=== PATIENT | male | born 1955 | race Caucasian/White ===

== ENCOUNTER → 2018-12-15 | Outpatient (CLI) | payer OTHER, SELFPAY ==
[2018-12-15 18:24] VITALS: BMI 26.9
[2018-12-16 01:07] LABS: Absolute Lymphocyte Count 2.53 X10^3/ul (0.83-4.51); Absolute Neutrophil Count 4.4 X10^3/uL (2.0-7.7); Basophil# 0.04 X10^3/uL; Basophil% 0.5 % (0-1); Eosinophil# 0.17 X10^3/uL; Hematocrit 44.6 % (40-54); Hemoglobin 15.3 g/dl (13.0-16.5); Lymphocyte # 2.53 X10^3/ul (4.0); Lymphocyte % 30.1 % (19-41); Mean Corp Hgb Conc 34.3 g/gl (32-36); Mean Corpuscular Volume 96.1 fL (80-94); Monocyte# 1.28 X10^3/uL; Monocyte% 15.2 % (0-10); Neutrophil # 4.38 X10^3/uL (2.7-7.7); Neutrophil % 52.1 % (47-70); Platelet Count 265 K/mm3 (150-450); RBC Distribution Width CV 13.7 % (11.6-14.6); RBC Distribution Width SD 48.3 fl (35.1-43.9); Red Blood Count 4.64 M/mm3 (4.6-6.2); White Blood Count 8.4 K/mm3 (4.4-11.0)
[2018-12-16 01:12] LABS: Erythrocyte Sedimentation Rate 2 mm/hr (0-20); POSITIVE COUNT NO; POSITIVE DIFFERENTIAL NO; POSITIVE MORPHOLOGY NO
[2018-12-16 03:07] LABS: ALB/GLOB Ratio 1.1 RATIO (0.9-2.4); AST(SGOT) 23 U/L (15-37); Alanine Aminotransfer ALT/SGPT 32 U/L (16-61); Albumin, Serum 3.7 g/dL (3.2-5.0); Alkaline Phosphatase 74 U/L (45-117); Anion Gap 5 (5-15); BUN 20 mg/dL (7-18); BUN/Creat Ratio 19.2 RATIO (10-20); Calcium,Total 8.7 mg/dL (8.5-10.1); Chloride 104 mmol/L (98-107); Creatinine, Serum 1.04 mg/dL (0.70-1.30); EST Glomerular Filtration Rate 77 mL/min (>60); Est Glom Filt Rate - Afr Amer 93 mL/min (>60); Globulin 3.3 g/dL (2.2-4.2); Glucose 78 mg/dL (74-106); Potassium 4.2 mmol/L (3.5-5.1); Rheumatoid Factor < 10.0 IU/mL (<15); Sodium Level 138 mmol/L (136-145)
[2018-12-17 15:07] LABS: ANTINUCLEAR ANTIBODIES DIRECT Negative (Negative)
== END | disposition home or self-care (01) ==
PROVIDERS: Family Provider Nurse Practitioner; PCP Nurse Practitioner; Referring Provider Nurse Practitioner; Visit Provider Nurse Practitioner
DX: M79.89 Other specified soft tissue disorders (principal); R20.0 Anesthesia of skin
CPT/HCPCS: 80053; 85025; 85652; 86038; 86225; 86235; 86431

== ENCOUNTER → 2019-05-11 01:09 | Outpatient (CLI) | payer OTHER, SELFPAY ==
[2019-05-10 15:13] VITALS: BMI 28.4
[2019-05-11 01:26] LABS: Absolute Lymphocyte Count 2.18 X10^3/uL (0.83-4.51); Absolute Neutrophil Count 4.5 X10^3/uL (2.0-7.7); Basophil% 1.2 % (0-1); Eosinophil# 0.38 X10^3/uL; Eosinophils% 4.5 % (0-5); Hematocrit 46.4 % (40-54); Hemoglobin 15.7 g/dL (13.0-16.5); Lymphocyte # 2.18 X10^3/ul (4.0); Lymphocyte % 25.9 % (19-41); Mean Corp Hgb Conc 33.8 g/dL (32-36); Mean Corpuscular Hgb 32.8 pg (27.0-32.0); Mean Corpuscular Volume 96.9 fL (80-94); Mean Platelet Vol. 12.1 fl (6.2-12.0); Monocyte# 1.28 X10^3/uL; Monocyte% 15.2 % (0-10); NRBC Flagged by Analyzer 0 % (0-5); Neutrophil # 4.47 X10^3/uL (2.7-7.7); Platelet Count 236 K/mm3 (150-450); RBC Distribution Width CV 12.9 % (11.6-14.6); RBC Distribution Width SD 46.4 fl (35.1-43.9); Red Blood Count 4.79 M/mm3 (4.6-6.2); White Blood Count 8.4 K/mm3 (4.4-11.0)
[2019-05-11 01:39] LABS: ALB/GLOB Ratio 1.1 RATIO (0.9-2.4); AST(SGOT) 26 U/L (15-37); Alanine Aminotransfer ALT/SGPT 35 U/L (16-61); Albumin, Serum 3.6 g/dL (3.2-5.0); Alkaline Phosphatase 74 U/L (45-117); Anion Gap 6 (5-15); BUN 14 mg/dL (7-18); BUN/Creat Ratio 12.5 RATIO (10-20); Calcium,Total 8.6 mg/dL (8.5-10.1); Chloride 105 mmol/L (98-107); Cholesterol 182 mg/dL (200); Creatinine, Serum 1.12 mg/dL (0.70-1.30); EST Glomerular Filtration Rate 71 mL/min (>60); Est Glom Filt Rate - Afr Amer 85 mL/min (>60); Globulin 3.3 g/dL (2.2-4.2); Glucose 154 mg/dL (74-106); High Density Lipoprotein 59 mg/dL; Potassium 3.9 mmol/L (3.5-5.1); Protein, Total 6.9 g/dL (6.4-8.2); Sodium Level 136 mmol/L (136-145); Triglycerides 170 mg/dL; Very Low Density Lipoprotein 34 mg/dL (5-40)
[2019-05-11 11:20] LABS: PSA,Total- Diagnostic 3.24 ng/mL (0.0-4.0)
== END ==
PROVIDERS: Family Provider Nurse Practitioner; PCP Nurse Practitioner; Referring Provider Nurse Practitioner; Visit Provider Nurse Practitioner
DX: Z00.00 Encounter for general adult medical examination without abnormal findings (principal); R97.20 Elevated prostate specific antigen [PSA]
CPT/HCPCS: 80053; 80061; 84153; 85025

== ENCOUNTER → 2020-01-11 20:58 | Outpatient (CLI) | payer OTHER, SELFPAY ==
[2020-01-11 14:53] VITALS: BMI 27.1
[2020-01-14 01:08] LABS: PSA, Free 0.41 ng/mL; PSA, Free % 10.5 % (.); PSA, Total Ultrasensitive 3.9 ng/mL (0.0-4.0)
== END ==
PROVIDERS: Visit Provider Nurse Practitioner
DX: R97.20 Elevated prostate specific antigen [PSA] (principal)
CPT/HCPCS: 84153; 84154

== ENCOUNTER → 2020-07-31 22:24 | Outpatient (CLI) | payer OTHER, SELFPAY ==
[2020-07-31 16:35] VITALS: BMI 27.8
[2020-07-31 22:43] LABS: Absolute Lymphocyte Count 2.24 X10^3/uL (0.83-4.51); Absolute Neutrophil Count 3.5 X10^3/uL (2.0-7.7); Basophil# 0.08 X10^3/uL; Basophil% 1.1 % (0-1); Eosinophil# 0.21 X10^3/uL; Hematocrit 44.4 % (40-54); Hemoglobin 14.7 g/dL (13.0-16.5); Lymphocyte # 2.24 X10^3/ul (4.0); Lymphocyte % 31.8 % (19-41); Mean Corp Hgb Conc 33.1 g/dL (32-36); Mean Corpuscular Hgb 32.1 pg (27.0-32.0); Mean Corpuscular Volume 96.9 fL (80-94); Mean Platelet Vol. 11.4 fl (6.2-12.0); Monocyte# 1.03 X10^3/uL; Monocyte% 14.6 % (0-10); NRBC Flagged by Analyzer 0 % (0-5); Neutrophil # 3.48 X10^3/uL (2.7-7.7); Neutrophil % 49.4 % (47-70); Platelet Count 265 K/mm3 (150-450); RBC Distribution Width SD 46.3 fl (35.1-43.9); Red Blood Count 4.58 M/mm3 (4.6-6.2); White Blood Count 7.1 K/mm3 (4.4-11.0)
[2020-07-31 23:04] LABS: ALB/GLOB Ratio 1.1 RATIO (0.9-2.4); AST(SGOT) 25 U/L (15-37); Alanine Aminotransfer ALT/SGPT 34 U/L (16-61); Albumin, Serum 3.6 g/dL (3.2-5.0); Alkaline Phosphatase 60 U/L (45-117); Anion Gap 5 (5-15); BUN 17 mg/dL (7-18); BUN/Creat Ratio 14.8 RATIO (10-20); Calcium,Total 8.7 mg/dL (8.5-10.1); Chloride 102 mmol/L (98-107); Cholesterol 186 mg/dL (200); Creatinine, Serum 1.15 mg/dL (0.70-1.30); EST Glomerular Filtration Rate 68 mL/min (>60); Est Glom Filt Rate - Afr Amer 83 mL/min (>60); Globulin 3.2 g/dL (2.2-4.2); Glucose 84 mg/dL (74-106); High Density Lipoprotein 63 mg/dL; PSA,Total - Annual Screen 3.29 ng/mL (0.00-4.00); Potassium 4.9 mmol/L (3.5-5.1); Protein, Total 6.8 g/dL (6.4-8.2); Sodium Level 136 mmol/L (136-145); Triglycerides 113 mg/dL; Very Low Density Lipoprotein 23 mg/dL (5-40)
== END ==
PROVIDERS: PCP Nurse Practitioner; Referring Provider Nurse Practitioner; Visit Provider Nurse Practitioner
DX: Z00.00 Encounter for general adult medical examination without abnormal findings (principal)
CPT/HCPCS: 80053; 80061; 84153; 85025; G0103

== ENCOUNTER → 2021-10-24 | Outpatient (CLI) | payer BC, SELFPAY ==
[2021-10-24 22:18] LABS: ALB/GLOB Ratio 1.1 RATIO (0.9-2.4); AST(SGOT) 26 U/L (15-37); Absolute Neutrophil Count 4.7 X10^3/uL (2.0-7.7); Alanine Aminotransfer ALT/SGPT 39 U/L (16-61); Albumin, Serum 3.5 g/dL (3.2-5.0); Alkaline Phosphatase 64 U/L (45-117); Anion Gap 6 (5-15); BUN 21 mg/dL (7-18); BUN/Creat Ratio 21.5 RATIO (10-20); Basophil% 1.1 % (0-1); Calcium,Total 8.3 mg/dL (8.5-10.1); Chloride 107 mmol/L (98-107); Cholesterol 186 mg/dL (200); Creatinine, Serum 0.98 mg/dL (0.70-1.30); EST Glomerular Filtration Rate 82 mL/min (>60); Eosinophil# 0.43 X10^3/uL; Eosinophils% 4.7 % (0-5); Est Glom Filt Rate - Afr Amer 99 mL/min (>60); Globulin 3.3 g/dL (2.2-4.2); Glucose 92 mg/dL (74-106); Hematocrit 43.2 % (40-54); Hemoglobin 14.7 g/dL (13.0-16.5); High Density Lipoprotein 64 mg/dL; Lymphocyte % 28.4 % (19-41); Mean Corpuscular Hgb 32.3 pg (27.0-32.0); Mean Corpuscular Volume 94.9 fL (80-94); Mean Platelet Vol. 11.5 fl (6.2-12.0); Monocyte# 1.35 X10^3/uL; Monocyte% 14.8 % (0-10); NRBC Flagged by Analyzer 0 % (0-5); Neutrophil # 4.66 X10^3/uL (2.7-7.7); Neutrophil % 50.9 % (47-70); PSA,Total - Annual Screen 4.56 ng/mL (0.00-4.00); Platelet Count 272 K/mm3 (150-450); Protein, Total 6.8 g/dL (6.4-8.2); RBC Distribution Width CV 13.2 % (11.6-14.6); Red Blood Count 4.55 M/mm3 (4.6-6.2); Sodium Level 138 mmol/L (136-145); Triglycerides 131 mg/dL; Very Low Density Lipoprotein 26 mg/dL (5-40); White Blood Count 9.2 K/mm3 (4.4-11.0)
== END | disposition home or self-care (01) ==
PROVIDERS: PCP Nurse Practitioner; Referring Provider Nurse Practitioner; Visit Provider Nurse Practitioner
DX: Z00.00 Encounter for general adult medical examination without abnormal findings (principal)
CPT/HCPCS: 80053; 80061; 84153; 85025; G0103

== ENCOUNTER → 2021-12-19 | Outpatient (CLI) | payer BC, SELFPAY ==
[2021-12-19 21:42] LABS: PSA,Total- Diagnostic 4.76 ng/mL (0.0-4.0)
[2021-12-21 13:20] LABS: PSA, Free 0.63 ng/mL; PSA, Free % 15.4 % (.); PSA, Total Ultrasensitive 4.1 ng/mL (0.0-4.0)
== END | disposition home or self-care (01) ==
PROVIDERS: PCP Nurse Practitioner; Referring Provider Nurse Practitioner; Visit Provider Nurse Practitioner
DX: R97.20 Elevated prostate specific antigen [PSA] (principal)
CPT/HCPCS: 84153; 84154

== ENCOUNTER → 2022-03-05 | Outpatient (CLI) | payer MEDICARE, SELFPAY ==
--- NOTE | 2022-03-05 | IMM_PTH ---
PATIENT: PHIL REMY LOC: [facility] U#:[id number] AGE/SX: 67/M ROOM: RE03/05/[address]: Dr. Brandyn Schroeder MD : 1955 BED: DIS: 03/05/2022 SPEC #: [id number] RECD: 03/08/22 07:41 STATUS: MARTHA REQ #: [id number] ASHLEY: 03/05/22 00:[address]: Brandyn Schroeder DEPT: IMMUNOHISTOCHEMISTRY RECD BY: Bernadette Wilkinson ENTERED: 03/08/22 07:42 SP TYPE: IMMUNO OTHR DR: Lorie Woodruff, RUBBER MOLD MAKER-C Tissues: B - PROSTATE RIGHT F - PROSTATE LEFT Procedures: 34BE12 (add) P40 (add) 34BE12 (initial) PHYSICIAN & INSTITUTION [place] [id number] SPECIMEN INFORMATION: Tissue Source: B - Right prostate, mid, core biopsy, F - Left prostate, base, core biopsy Clinical Info: Elevated PSA Specimen Number: [id number] B & F CPT code: 40844, 00167 x3 METHODOLOGY: Deparaffinized sections of prefer/formalin-fixed tissue or PAP/DQ stained slides are incubated with monoclonal/polyclonal antibodies/oligonucleotide probes. Localization is made via biotin free immunoperoxidase method. Appropriate controls are performed and reacted as expected. Results on target cell population are indicated in the following table: RESULTS: ANTIBODY / CLONE RESULT Block B P40 (BC28) negative 34BE12 (34BE12) negative Block F P40 (BC28) negative 34BE12 (34BE12) negative These tests were developed and their performance characteristics determined by [facility]. They may not have been cleared or approved by the U.S. Food and Drug Administration. The FDA has determined that such clearance or approval is not necessary. The above immunohistochemical/dualISH markers are ordered and reviewed by the Pathologist. INTERPRETATION: B. Right prostate, mid, core biopsy: Adenocarcinoma. F. Left prostate, base, core biopsy: Focal atypical small acinar proliferation (ELLYN). JUDY:efra 03/08/2022
--- NOTE | 2022-03-05 08:00 | PROSBIL_PTH ---
PATIENT: PHIL REMY [facility] U#:[id number] AGE/SX: 67/M ROOM: RE03/05/[address]: Dr. Brandyn Schroeder MD : 1955 BED: DIS: 03/05/2022 SPEC #: [id number] RECD: 03/05/22 16:48 STATUS: MARTHA SABINO #: [id number] ASHLEY: 03/05/22 08:[address]: Brandyn Schroeder DEPT: SURGICAL PATHOLOGY RECD BY: Alicia Elliott ENTERED: 03/06/22 08:25 SP TYPE: PROST BX REAGAN DR: Lorie Woodruff, CHARGE LPN-C Tissues: A - PROSTATE RIGHT B - PROSTATE RIGHT C - PROSTATE RIGHT D - PROSTATE LEFT E - PROSTATE LEFT F - PROSTATE LEFT Procedures: PROSTATE BX HEADER OPERATION: Prostate biopsy PRE-OP DIAGNOSIS: Elevated PSA R97.20 TISSUE SUBMITTED: A - Right apex, B - Right mid, C - Right base, D - Left apex, E - Left mid, F - Left base MICROSCOPIC DIAGNOSIS A. Right prostate, apex, core biopsy: Prostatic tissue, negative for malignancy. B. Right prostate, mid, core biopsy: Prostatic adenocarcinoma. [place] grade: 3+3=6 Number of cores involved: 1/2 Proportion of tissue involved: ~5% Perineural invasion: Not identified. Greatest tumor length: 0.1 cm See comment. C. Right prostate, base, core biopsy: Prostatic tissue, negative for malignancy. D. Left prostate, apex, core biopsy: Prostatic tissue, negative for malignancy. E. Left prostate, mid, core biopsy: Focal high-grade prostatic intraepithelial neoplasia (HGPIN). Focal mild chronic inflammation. F. Left prostate, base, core biopsy: Focal atypical small acinar proliferation (ELLYN). See comment. SJ:rg 03/07/2022 COMMENT B & F. Immunohistochemistry ([id number]) supports the above diagnosis. Case has been reviewed in consultation with Dr. Flores who concurs with the above diagnosis. IDC:AM MICROSCOPIC DESCRIPTION Slides are reviewed. GROSS DESCRIPTION A - Received is one container designated prostate, right apex. The specimen consists of one elongated fragment of light sparks-white soft tissue measuring 1 cm in length and 0.1 cm in diameter. The specimen is totally submitted in one cassette. B - Received is one container designated prostate, right mid. The specimen consists of two elongated fragments of light sparks-white soft tissue measuring 0.7 and 1.2 cm in length and 0.1 cm in diameter. The specimen is totally submitted in one cassette. C - Received is one container designated prostate, right base. The specimen consists of two elongated fragments of light sparks-white soft tissue each measuring 1.4 cm in length and 0.1 cm in diameter. The specimen is totally submitted in one cassette. D - Received is one container designated prostate, left apex. The specimen consists of one elongated fragment of light sparks-white soft tissue measuring 0.7 cm in length and 0.1 cm in diameter. The specimen is totally submitted in one cassette. E - Received is one container designated prostate, left mid. The specimen consists of two elongated fragments of light sparks-white soft tissue each measuring 0.8 cm in length and 0.1 cm in diameter. The specimen is totally submitted in one cassette. F - Received is one container designated prostate, left base. The specimen consists of two elongated fragments of light sparks-white soft tissue each measuring 1 cm in length and 0.1 cm in diameter. The specimen is totally submitted in one cassette. / SJ:rg 03/06/2022 TC:0 CPT: G0146 ADDENDUM ADDENDUM ADDENDUM ADDENDUM ADDENDUM ADDENDUM ADDENDUM ADDENDUM 04/10/2022 10:32 ADDENDUM 04/10/2022 10:32 ADDENDUM 04/10/2022 10:32 ADDENDUM 04/10/2022 10:32 ADDENDUM 04/10/2022 10:32 An order for Oncotype testing was received from Dr. Schroeder. This necessitated case review, block and slide selection by pathologist at [facility]. Genomic Prostate Score = 44 Results of the complete Oncotype testing ([employer] report) are viewable in EMR under: Reports - Pathology - Lab Pathology Report, Scanned.
== END | disposition home or self-care (01) ==
LOC: LABSPEC 16:51
PROVIDERS: PCP Nurse Practitioner; Referring Provider Urology; Visit Provider Urology
DX: C61 Malignant neoplasm of prostate (principal); N42.32 Atypical small acinar proliferation of prostate
CPT/HCPCS: 88305; 88341; 88342; G0416

== ENCOUNTER → 2022-04-22 | Outpatient (CLI) | payer MEDICARE, SELFPAY ==
[2022-04-22 22:04] LABS: Absolute Lymphocyte Count 2.28 X10^3/uL (0.83-4.51); Absolute Neutrophil Count 5.8 X10^3/uL (2.0-7.7); Basophil# 0.09 X10^3/uL; Basophil% 0.9 % (0-1); Eosinophil# 0.27 X10^3/uL; Eosinophils% 2.8 % (0-5); Hematocrit 45.8 % (40-54); Hemoglobin 15.7 g/dL (13.0-16.5); Lymphocyte # 2.28 X10^3/ul (0.83-4.51); Lymphocyte % 23.5 % (19-41); Mean Corp Hgb Conc 34.3 g/dL (32-36); Mean Corpuscular Hgb 33.5 pg (27.0-32.0); Mean Corpuscular Volume 97.9 fL (80-94); Mean Platelet Vol. 11.6 fl (6.2-12.0); Monocyte# 1.22 X10^3/uL; Monocyte% 12.6 % (0-10); NRBC Flagged by Analyzer 0 % (0-5); Neutrophil # 5.84 X10^3/uL (2.7-7.7); Platelet Count 284 K/mm3 (150-450); RBC Distribution Width CV 13.5 % (11.6-14.6); RBC Distribution Width SD 49.1 fl (35.1-43.9); Red Blood Count 4.68 M/mm3 (4.6-6.2); White Blood Count 9.7 K/mm3 (4.4-11.0)
[2022-04-22 22:18] LABS: ALB/GLOB Ratio 1.2 RATIO (0.9-2.4); AST(SGOT) 32 U/L (15-37); Alanine Aminotransfer ALT/SGPT 49 U/L (16-61); Alkaline Phosphatase 71 U/L (45-117); Anion Gap 5 (5-15); BUN 17 mg/dL (7-18); BUN/Creat Ratio 13.5 RATIO (10-20); Calcium,Total 9.1 mg/dL (8.5-10.1); Chloride 105 mmol/L (98-107); Creatinine, Serum 1.26 mg/dL (0.70-1.30); EST Glomerular Filtration Rate 61 mL/min (>60); Est Glom Filt Rate - Afr Amer 74 mL/min (>60); Globulin 3.4 g/dL (2.2-4.2); Glucose 158 mg/dL (74-106); Potassium 4.5 mmol/L (3.5-5.1); Protein, Total 7.4 g/dL (6.4-8.2); Sodium Level 137 mmol/L (136-145)
[2022-04-24 18:19] LABS: PSA, Free 0.46 ng/mL; PSA, Free % 14.4 % (.)
== END | disposition home or self-care (01) ==
PROVIDERS: PCP Nurse Practitioner; Visit Provider Nurse Practitioner
DX: C61 Malignant neoplasm of prostate (principal)
CPT/HCPCS: 80053; 84153; 84154; 85025

== ENCOUNTER → 2022-04-25 | Outpatient (CLI) | payer MEDICARE, OTHER, SELFPAY ==
--- NOTE | 2022-04-25 16:58 | MRI_ITS ---
STUDY: MR PELVIS WITH T WITHOUT CONTRAST REASON FOR EXAM: Male, 67 years old. ELEVATED PROSTATE SPECIFIC ANTIGEN TECHNIQUE: Standardized fat and water weighted pulse sequences were obtained in all 3 orthogonal planes, pre-and post contrast administration. 18mL CLARISCAN contrast material was administered intravenously for the contrast portion of the examination. COMPARISON: None. FINDINGS: Normal urinary bladder. There are multiple colonic diverticula of the sigmoid colon consistent with chronic diverticulosis. Prostate gland: 14mm x 9 mm lesion in the right transitional zone (right TZa). This is of low T2 signal, increased DWI, and low ADC maps. Minimal enhancement. The anterior fibromuscular stroma and central zone appear intact. The central gland demonstrates normal signal characteristics. Rectum is unremarkable. Levator ani muscle is not disrupted. The distal urethra is surrounded by the low T2 signal intensity muscle which is the external urethral sphincter as noted on the coronal images. The penile bulb is embraced by an intact inferomedial levator ani muscle. No areas of abnormal enhancement. Normal visualized neurovascular bundles. There is no pelvic fluid. There is no pelvic mass lesion or lymphadenopathy. Normal visualized pelvic arteries. Normal osseous structures. Normal abdominal wall. MRI/Pelvis W/WO Contrast IMPRESSION: 14mm x 9 mm lesion in the right transitional zone (right TZa). Assessment: PIRADS 4 - High. Clinically significant cancer is likely to be present. Electronically Signed: Reynold Quinones MD at 21:50 EDT ,
== END | disposition home or self-care (01) ==
PROVIDERS: PCP Nurse Practitioner; Visit Provider Urology
DX: C61 Malignant neoplasm of prostate (principal)
CPT/HCPCS: 72197; A9575

== ENCOUNTER → 2022-05-27 | Outpatient (CLI) | payer MEDICARE, OTHER, SELFPAY ==
--- NOTE | 2022-05-27 | IMM_PTH ---
PATIENT: PHIL REMY LOC: [facility] U#:[id number] AGE/SX: 67/M ROOM: RE05/27/[address]: Dr. Brandyn Schroeder MD : 1955 BED: DIS: 05/27/2022 SPEC #: [id number] RECD: 05/29/22 12:37 STATUS: MARTHA REQ #: [id number] ASHLEY: 05/27/22 00:[address]: Brandyn Schroeder DEPT: IMMUNOHISTOCHEMISTRY RECD BY: eBrnadette Wilkinson ENTERED: 05/29/22 12:38 SP TYPE: IMMUNO OTHR DR: Lorie Woodruff, REGIONAL ACCOUNT EXECUTIVE-C Tissues: A - PROSTATE RIGHT Procedures: P40 (add) 34BE12 (initial) PHYSICIAN & INSTITUTION [place] [id number] SPECIMEN INFORMATION: Tissue Source: A - Right prostate, apex, core biopsy Clinical Info: Elevated PSA Specimen Number: [id number] CPT code: 81595, 44938 METHODOLOGY: Deparaffinized sections of prefer/formalin-fixed tissue or PAP/DQ stained slides are incubated with monoclonal/polyclonal antibodies/oligonucleotide probes. Localization is made via biotin free immunoperoxidase method. Appropriate controls are performed and reacted as expected. Results on target cell population are indicated in the following table: RESULTS: ANTIBODY / CLONE RESULT Block A P40 (BC28) negative 34BE12 (34BE12) negative These tests were developed and their performance characteristics determined by [facility]. They may not have been cleared or approved by the U.S. Food and Drug Administration. The FDA has determined that such clearance or approval is not necessary. The above immunohistochemical/dualISH markers are ordered and reviewed by the Pathologist. INTERPRETATION: A. Right prostate, apex, core biopsy: Adenocarcinoma. AM:efra 05/30/2022
--- NOTE | 2022-05-27 08:00 | PROSBIL_PTH ---
PATIENT: PHIL REMY LOC: [facility] U#:[id number] AGE/SX: 67/M ROOM: RE05/27/[address]: Dr. Brandyn Schroeder MD : 1955 BED: DIS: 05/27/2022 SPEC #: [id number] RECD: 05/27/22 08:00 STATUS: MARTHA SABINO #: [id number] ASHLEY: 05/27/22 08:[address]: Brandyn Schroeder DEPT: SURGICAL PATHOLOGY RECD BY: Esther Pinzon ENTERED: 05/28/22 07:28 SP TYPE: PROST BX REAGAN DR: Lorie Woodruff, JASMINA-C Tissues: A - PROSTATE RIGHT B - PROSTATE RIGHT C - PROSTATE RIGHT Procedures: PROSTATE BX HEADER OPERATION: Prostate biopsy PRE-OP DIAGNOSIS: Elevated PSA TISSUE SUBMITTED: A - Right prostate, apex, B - Right prostate, mid, C - Right prostate, base MICROSCOPIC DIAGNOSIS A. Right prostate, apex, core biopsy: Adenocarcinoma. [place] grade: 6 (3+3) Cores involved: 1 of 2 cores Tissue involved: 8% Greatest tumor length: 3 millimeters See comment. B. Right prostate, mid, core biopsy: Benign prostatic tissue. C. Right prostate, base, core biopsy: Benign prostatic tissue. AM:efra 05/29/2022 COMMENT A. Immunohistochemistry ([id number]) supports the above diagnosis. Reference is made to the patient's previous right prostate, needle core biopsy ([id number]) in which adenocarcinoma was identified. MICROSCOPIC DESCRIPTION Slides are reviewed. GROSS DESCRIPTION A - Received is one container designated prostate, right apex. The specimen consists of two elongated fragments of light sparks-white soft tissue each measuring 2 cm in length and 0.1 cm in diameter. The specimen is totally submitted in one cassette. B - Received is one container designated prostate, right mid. The specimen consists of two elongated fragments of light sparks-white soft tissue measuring 1.2 and 1.7 cm in length and 0.1 cm in diameter. The specimen is totally submitted in one cassette. C - Received is one container designated prostate, right base. The specimen consists of two elongated fragments of light sparks-white soft tissue measuring 1.2 and 1.7 cm in length and 0.1 cm in diameter. The specimen is totally submitted in one cassette. / SJ:rg 05/28/2022 TC:0 CPT: G0146
== END | disposition home or self-care (01) ==
LOC: LABSPEC 16:50
PROVIDERS: PCP Nurse Practitioner; Referring Provider Urology; Visit Provider Urology
DX: C61 Malignant neoplasm of prostate (principal); R97.20 Elevated prostate specific antigen [PSA]
CPT/HCPCS: 88305; 88341; 88342; G0416

== ENCOUNTER 2022-08-16 23:26 | Emergency (ER) | payer MEDICARE, OTHER, SELFPAY ==
--- NOTE | 2022-08-16 00:10 | RAD_ITS ---
EXAM: XR CHEST, 2 VIEWS CLINICAL INDICATION: chest pain TECHNIQUE: Frontal and lateral views of the chest. This report was created using [employer] report generation technology. COMPARISON: None. FINDINGS: LUNGS AND PLEURAL SPACES: Minimal discoid atelectasis or scarring in the right mid-lower. Peribronchial cuffing indicating bronchial wall inflammation. No patchy pneumonia. No pneumothorax or pleural effusion. HEART: Normal heart size. Pruning of the peripheral pulmonary vascular markings suggesting pulmonary emphysema. MEDIASTINUM: Mild/moderate elongation of the thoracic aorta. Trachea is midline. BONES/JOINTS: No acute osseous abnormality. Old left rib fractures. SOFT TISSUES: Eventration of the right hemidiaphragm. RAD/Chest PA and Lateral IMPRESSION: Peribronchial cuffing, indicating bronchial wall inflammation/bronchitis. No pneumonia or pulmonary edema. Electronically Signed: Kleber Anuglo MD at 1:17 EST ,
[2022-08-16 23:26] VITALS: BP 157/94; PULSE 79; RESP 18; TEMP 36.2; O2SAT 96; BMI 27.1
--- NOTE | 2022-08-16 23:39 | EKG12_ITS ---
Test Reason : CP Blood Pressure : / mmHG Vent. Rate : 075 BPM Atrial Rate : 075 BPM P-R Int : 186 ms QRS Dur : 088 ms QT Int : 374 ms P-R-T Axes : 044 -45 032 degrees QTc Int : 417 ms Normal sinus rhythm Left anterior fascicular block Inferior infarct , age undetermined Abnormal ECG Confirmed by JT BROOKS, JOSH ([id number]), photograph editor ARTI IBANEZ ([id number]) on 08/19/2022 1:59:54 PM Referred By: JEANNE Confirmed By:JOSH WATERS MD
[2022-08-17 00:11] LABS: Absolute Lymphocyte Count 2.24 X10^3/uL (0.83-4.51); Absolute Neutrophil Count 2.8 X10^3/uL (2.0-7.7); Basophil# 0.09 X10^3/uL; Basophil% 1.2 % (0-1); Eosinophil# 0.49 X10^3/uL; Eosinophils% 6.7 % (0-5); Hematocrit 43.9 % (40-54); Hemoglobin 14.8 g/dL (13.0-16.5); Lymphocyte # 2.24 X10^3/ul (0.83-4.51); Lymphocyte % 30.8 % (19-41); Mean Corp Hgb Conc 33.7 g/dL (32-36); Mean Corpuscular Hgb 32.5 pg (27.0-32.0); Mean Corpuscular Volume 96.3 fL (80-94); Mean Platelet Vol. 11.4 fl (6.2-12.0); NRBC Flagged by Analyzer 0 % (0-5); Neutrophil # 2.84 X10^3/uL (2.7-7.7); POSITIVE DIFFERENTIAL YES; Platelet Count 251 K/mm3 (150-450); RBC Distribution Width CV 13.2 % (11.6-14.6); Red Blood Count 4.56 M/mm3 (4.6-6.2); White Blood Count 7.3 K/mm3 (4.4-11.0)
[2022-08-17 00:23] LABS: Differential Indicated SCAN CRITERIA MET
[2022-08-17] MEDS: Aspirin 325 MG Tablet PO (00:26)
[2022-08-17] MEDS: Orphenadrine 60 MG/2 ML Ampul IV (00:26)
[2022-08-17] MEDS: dexAMETHasone 10 MG/ML Vial IV (00:26)
[2022-08-17 00:35] LABS: D-Dimer Quantitative (DVT/PE) 0.58 FEU/ug/m (0.27-0.49)
[2022-08-17 00:40] LABS: Anion Gap 10 (5-15); BUN 19 mg/dL (7-18); BUN/Creat Ratio 19.3 RATIO (10-20); Calcium,Total 8.9 mg/dL (8.5-10.1); Chloride 108 mmol/L (98-107); Creatinine, Serum 0.99 mg/dL (0.70-1.30); EST Glomerular Filtration Rate 81 mL/min (>60); Est Glom Filt Rate - Afr Amer 98 mL/min (>60); Estimated Creatinine Clearance 79.23 ml/min; Glucose 132 mg/dL (74-106); Magnesium 2.2 mg/dL (1.6-2.6); Potassium 3.9 mmol/L (3.5-5.1); Sodium Level 141 mmol/L (136-145); Troponin-I HS 6 pg/mL (3.0-78.0)
[2022-08-17 01:22] LABS: Differential Comment SCANNED
--- NOTE | 2022-08-17 01:30 | CT_ITS ---
EXAM: CT ANGIOGRAPHY CHEST WITHOUT AND WITH INTRAVENOUS CONTRAST CLINICAL INDICATION: chest pain with elevated d-dimer TECHNIQUE: Helically acquired angiography images were obtained of the chest without and with intravenous contrast. This CT exam was performed using one or more of the following dose reduction techniques: automated exposure control, adjustment of the mA and/or kV according to patient size, and/or use of iterative reconstruction technique. This report was created using [employer] report generation technology. MIP reconstructed images were created and reviewed. CONTRAST: IV 100mL Isovue-370 RADIATION DOSE: Total DLP: 504.76 mGy-cm. COMPARISON: Chest radiographs of this same date. FINDINGS: PULMONARY ARTERIES: Unremarkable. Normal in caliber. No evidence of pulmonary embolism. AORTA: Mild fusiform dilatation of the ascending thoracic aorta which measures 4 cm in transverse diameter, as can be seen with aortic valvular disease. No evidence of dissection. GREAT VESSELS OF AORTIC ARCH: Unremarkable. Normal in caliber. No evidence of dissection. LUNGS AND PLEURAL SPACES: Mild peribronchial cuffing. No patchy pneumonia. No groundglass opacities. Minimal dependent atelectasis. No mass. No pleural effusion or thickening. HEART: Heavy coronary artery calcification. No significant pericardial effusion. MEDIASTINUM: Small hiatal hernia. Circumferential thickening of the distal esophageal wall just above the level of the hiatal hernia, typically due to reflux esophagitis.. Normal size mediastinal lymph nodes. Upper normal-sized lymph node in the AP window, measuring 9 mm in short axis diameter. No hilar adenopathy. THYROID: Unremarkable. No thyroid lesions. BONES/JOINTS: Old left rib fractures. Thoracic degenerative spurring. No acute osseous abnormality. No suspicious lytic or blastic abnormality. INTRAPERITONEAL SPACE: Visualized liver, pancreas, adrenal glands and renal upper poles are unremarkable. Spleen is very small with 2 small splenules. No pneumoperitoneum is noted. CT/CTA Chest W/WO Contrast IMPRESSION: Negative for PE. No thoracic aortic dissection. Peribronchial cuffing indicating bronchial wall inflammation/bronchitis. No pneumonia. Small hiatal hernia with findings of reflux esophagitis. Electronically Signed: Kleber Angulo MD at 3:02 EST ,
[2022-08-17 02:22] LABS: Troponin-I HS 7 pg/mL (3.0-78.0)
[2022-08-17 02:26] VITALS: BP 134/83; PULSE 60; RESP 15; O2SAT 95
[2022-08-17 03:00] VITALS: BP 137/90; PULSE 66; RESP 19; O2SAT 93
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
[2022-08-17 03:27] VITALS: BP 130/86; PULSE 64; RESP 16; O2SAT 96
== END 2022-08-17 03:28 | disposition home or self-care (01) ==
PROVIDERS: Emergency Provider Emergency Medicine; PCP Nurse Practitioner; Visit Provider Emergency Medicine
DX: J40 Bronchitis, not specified as acute or chronic (principal); I25.10 Atherosclerotic heart disease of native coronary artery without angina pectoris; F17.220 Nicotine dependence, chewing tobacco, uncomplicated; R07.9 Chest pain, unspecified; Z85.46 Personal history of malignant neoplasm of prostate
CPT/HCPCS: 71046; 71275; 80048; 83735; 84484; 85025; 85379; 93005; 96374; 96375; 99285; Q9967; A4216

== ENCOUNTER → 2022-09-18 | Outpatient (CLI) | payer MEDICARE, OTHER, SELFPAY ==
[2022-09-18 22:11] LABS: PSA,Total- Diagnostic 3.45 ng/mL (0.0-4.0)
== END | disposition home or self-care (01) ==
PROVIDERS: PCP Nurse Practitioner; Visit Provider Nurse Practitioner
DX: R97.20 Elevated prostate specific antigen [PSA] (principal); C61 Malignant neoplasm of prostate
CPT/HCPCS: 84153; 84154

== ENCOUNTER → 2022-12-10 | Outpatient (CLI) | payer MEDICARE, OTHER, SELFPAY ==
[2022-12-10 22:30] LABS: Absolute Lymphocyte Count 2.44 X10^3/uL (0.83-4.51); Absolute Neutrophil Count 3.9 X10^3/uL (2.0-7.7); Basophil# 0.06 X10^3/uL; Basophil% 0.8 % (0-1); Eosinophil# 0.27 X10^3/uL; Eosinophils% 3.5 % (0-5); Hematocrit 45.8 % (40-54); Hemoglobin 15.1 g/dL (13.0-16.5); Lymphocyte # 2.44 X10^3/ul (0.83-4.51); Lymphocyte % 31.5 % (19-41); Mean Corpuscular Hgb 32.8 pg (27.0-32.0); Mean Corpuscular Volume 99.3 fL (80-94); Mean Platelet Vol. 11.9 fl (6.2-12.0); Monocyte# 1.05 X10^3/uL; Monocyte% 13.6 % (0-10); NRBC Flagged by Analyzer 0 % (0-5); Neutrophil % 50.3 % (47-70); Platelet Count 246 K/mm3 (150-450); RBC Distribution Width SD 47.8 fl (35.1-43.9); Red Blood Count 4.61 M/mm3 (4.6-6.2); White Blood Count 7.7 K/mm3 (4.4-11.0)
[2022-12-10 22:43] LABS: AST(SGOT) 26 U/L (15-37); Alanine Aminotransfer ALT/SGPT 46 U/L (16-61); Albumin, Serum 3.6 g/dL (3.2-5.0); Alkaline Phosphatase 70 U/L (45-117); Anion Gap 6 (5-15); BUN 18 mg/dL (7-18); BUN/Creat Ratio 18.6 RATIO (10-20); Chloride 106 mmol/L (98-107); Cholesterol 199 mg/dL (200); Creatinine, Serum 0.97 mg/dL (0.70-1.30); EST Glomerular Filtration Rate 82 mL/min (>60); Est Glom Filt Rate - Afr Amer 100 mL/min (>60); Globulin 3.6 g/dL (2.2-4.2); Glucose 93 mg/dL (74-106); High Density Lipoprotein 59 mg/dL; PSA,Total- Diagnostic 3.96 ng/mL (0.0-4.0); Potassium 4.4 mmol/L (3.5-5.1); Protein, Total 7.2 g/dL (6.4-8.2); Sodium Level 139 mmol/L (136-145); Triglycerides 289 mg/dL; Very Low Density Lipoprotein 58 mg/dL (5-40)
== END | disposition home or self-care (01) ==
PROVIDERS: PCP Nurse Practitioner; Visit Provider Nurse Practitioner
DX: Z00.00 Encounter for general adult medical examination without abnormal findings (principal); R19.7 Diarrhea, unspecified; R97.20 Elevated prostate specific antigen [PSA]; E78.5 Hyperlipidemia, unspecified
CPT/HCPCS: 80053; 80061; 84153; 85025

== ENCOUNTER → 2022-12-16 | Outpatient (CLI) | payer MEDICARE, OTHER, SELFPAY ==
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
== END | disposition home or self-care (01) ==
LOC: RAD 08:41
PROVIDERS: PCP Nurse Practitioner; Referring Provider Nurse Practitioner; Visit Provider Nurse Practitioner
DX: M79.673 Pain in unspecified foot (principal)
CPT/HCPCS: 73630

== ENCOUNTER → 2023-01-21 | Outpatient (CLI) | payer MEDICARE, OTHER, SELFPAY ==
[2023-01-21 21:11] LABS: Absolute Lymphocyte Count 1.08 X10^3/uL (0.83-4.51); Absolute Neutrophil Count 10.6 X10^3/uL (2.0-7.7); Basophil# 0.04 X10^3/uL; Basophil% 0.3 % (0-1); Eosinophil# 0.18 X10^3/uL; Eosinophils% 1.4 % (0-5); Hematocrit 40.4 % (40-54); Hemoglobin 13.9 g/dL (13.0-16.5); Lymphocyte # 1.08 X10^3/ul (0.83-4.51); Lymphocyte % 8.3 % (19-41); Mean Corp Hgb Conc 34.4 g/dL (32-36); Mean Corpuscular Hgb 33.7 pg (27.0-32.0); Mean Corpuscular Volume 98.1 fL (80-94); Mean Platelet Vol. 11.8 fl (6.2-12.0); Monocyte# 1.04 X10^3/uL; NRBC Flagged by Analyzer 0 % (0-5); Neutrophil # 10.57 X10^3/uL (2.7-7.7); Neutrophil % 81.5 % (47-70); Platelet Count 199 K/mm3 (150-450); RBC Distribution Width CV 13.6 % (11.6-14.6); RBC Distribution Width SD 50.1 fl (35.1-43.9); Red Blood Count 4.12 M/mm3 (4.6-6.2)
[2023-01-21 22:51] LABS: ALB/GLOB Ratio 0.8 RATIO (0.9-2.4); AST(SGOT) 17 U/L (15-37); Alanine Aminotransfer ALT/SGPT 23 U/L (16-61); Albumin, Serum 2.8 g/dL (3.2-5.0); Alkaline Phosphatase 78 U/L (45-117); Anion Gap 5 (5-15); BUN 10 mg/dL (7-18); Calcium,Total 7.8 mg/dL (8.5-10.1); Chloride 104 mmol/L (98-107); EST Glomerular Filtration Rate 80 mL/min (>60); Est Glom Filt Rate - Afr Amer 96 mL/min (>60); Globulin 3.5 g/dL (2.2-4.2); Glucose 152 mg/dL (74-106); Protein, Total 6.3 g/dL (6.4-8.2); Sodium Level 134 mmol/L (136-145); Thyroid Stim Hormone (TSH) 2.08 uIU/mL (0.358-3.74)
[2023-01-23 11:09] LABS: PSA, Free 4.32 ng/mL; PSA, Free % 25.1 % (.)
== END | disposition home or self-care (01) ==
PROVIDERS: PCP Nurse Practitioner; Visit Provider Nurse Practitioner
DX: R10.814 Left lower quadrant abdominal tenderness (principal); C61 Malignant neoplasm of prostate; N30.90 Cystitis, unspecified without hematuria; R50.9 Fever, unspecified; R52 Pain, unspecified; R97.20 Elevated prostate specific antigen [PSA]
CPT/HCPCS: 80053; 84153; 84154; 84443; 85025; 87086; 87088; 87186

== ENCOUNTER → 2023-02-20 | Outpatient (CLI) | payer MEDICARE, OTHER, SELFPAY ==
[2023-02-20 22:58] LABS: ALB/GLOB Ratio 1.1 RATIO (0.9-2.4); AST(SGOT) 26 U/L (15-37); Alanine Aminotransfer ALT/SGPT 49 U/L (16-61); Albumin, Serum 3.5 g/dL (3.2-5.0); Alkaline Phosphatase 60 U/L (45-117); Anion Gap 4 (5-15); BUN 15 mg/dL (7-18); BUN/Creat Ratio 14.2 RATIO (10-20); Calcium,Total 9.1 mg/dL (8.5-10.1); Chloride 105 mmol/L (98-107); Creatinine, Serum 1.06 mg/dL (0.70-1.30); EST Glomerular Filtration Rate 74 mL/min (>60); Est Glom Filt Rate - Afr Amer 90 mL/min (>60); Globulin 3.3 g/dL (2.2-4.2); Glucose 115 mg/dL (74-106); Potassium 4.1 mmol/L (3.5-5.1); Protein, Total 6.8 g/dL (6.4-8.2); Sodium Level 138 mmol/L (136-145)
[2023-02-22 10:09] LABS: PSA, Free 0.41 ng/mL; PSA, Free % 8.8 % (.)
== END | disposition home or self-care (01) ==
PROVIDERS: PCP Nurse Practitioner; Visit Provider Nurse Practitioner
DX: C61 Malignant neoplasm of prostate (principal)
CPT/HCPCS: 80053; 84153; 84154

== ENCOUNTER → 2023-06-17 | Outpatient (CLI) | payer MEDICARE, OTHER, SELFPAY ==
[2023-06-19 12:08] LABS: PSA, Free 0.58 ng/mL
== END | disposition home or self-care (01) ==
PROVIDERS: PCP Nurse Practitioner; Visit Provider Nurse Practitioner
DX: C61 Malignant neoplasm of prostate (principal); R97.20 Elevated prostate specific antigen [PSA]
CPT/HCPCS: 84153; 84154

== ENCOUNTER → 2023-09-18 | Outpatient (CLI) | payer MEDICARE, OTHER, SELFPAY ==
[2023-09-18 22:09] LABS: PSA,Total- Diagnostic 4.75 ng/mL (0.0-4.0)
== END | disposition home or self-care (01) ==
PROVIDERS: PCP Nurse Practitioner; Visit Provider Nurse Practitioner
DX: R97.20 Elevated prostate specific antigen [PSA] (principal)
CPT/HCPCS: 84153

== ENCOUNTER → 2023-11-27 | Outpatient (CLI) | payer MEDICARE, OTHER, SELFPAY ==
[2023-11-27 21:45] LABS: PSA,Total- Diagnostic 4.61 ng/mL (0.0-4.0)
[2023-11-29 11:08] LABS: PSA, Free 0.53 ng/mL; PSA, Free % 13.6 % (.)
== END | disposition home or self-care (01) ==
PROVIDERS: PCP Nurse Practitioner; Visit Provider Nurse Practitioner
DX: R97.20 Elevated prostate specific antigen [PSA] (principal)
CPT/HCPCS: 84153; 84154

== ENCOUNTER → 2024-04-05 | Outpatient (CLI) | payer MEDICARE, OTHER, SELFPAY ==
[2024-04-05 21:39] LABS: ALB/GLOB Ratio 1.2 RATIO (0.9-2.4); AST(SGOT) 27 U/L (15-37); Alanine Aminotransfer ALT/SGPT 39 U/L (16-61); Albumin, Serum 3.8 g/dL (3.2-5.0); Alkaline Phosphatase 67 U/L (45-117); Anion Gap 7 (5-15); BUN 15 mg/dL (7-18); BUN/Creat Ratio 12.7 RATIO (10-20); Calcium,Total 9.2 mg/dL (8.5-10.1); Chloride 103 mmol/L (98-107); Cholesterol 185 mg/dL (200); Creatinine, Serum 1.18 mg/dL (0.70-1.30); EST Glomerular Filtration Rate 65 mL/min (>60); Est Glom Filt Rate - Afr Amer 79 mL/min (>60); Globulin 3.1 g/dL (2.2-4.2); Glucose 147 mg/dL (74-106); High Density Lipoprotein 65 mg/dL; PSA,Total- Diagnostic 4.97 ng/mL (0.0-4.0); Potassium 4.3 mmol/L (3.5-5.1); Protein, Total 6.9 g/dL (6.4-8.2); Sodium Level 137 mmol/L (136-145); Triglycerides 132 mg/dL; Very Low Density Lipoprotein 26 mg/dL (5-40); Vitamin B12 346 pg/mL (211-911)
== END | disposition home or self-care (01) ==
PROVIDERS: PCP Nurse Practitioner; Referring Provider Nurse Practitioner; Visit Provider Nurse Practitioner
DX: C61 Malignant neoplasm of prostate (principal); R97.20 Elevated prostate specific antigen [PSA]; R53.83 Other fatigue; E53.8 Deficiency of other specified B group vitamins; E78.5 Hyperlipidemia, unspecified
CPT/HCPCS: 80053; 80061; 82607; 84153

== ENCOUNTER → 2024-06-18 | Outpatient (CLI) | payer MEDICARE, OTHER, SELFPAY ==
[2024-06-18 21:42] LABS: PSA,Total- Diagnostic 4.51 ng/mL (0.0-4.0)
[2024-06-21 15:07] LABS: PSA, Free 0.45 ng/mL; PSA, Free % 10.9 % (.)
== END | disposition home or self-care (01) ==
PROVIDERS: PCP Nurse Practitioner; Referring Provider Nurse Practitioner; Visit Provider Nurse Practitioner
DX: R97.20 Elevated prostate specific antigen [PSA] (principal)
CPT/HCPCS: 84153; 84154

== ENCOUNTER → 2024-10-12 | Outpatient (CLI) | payer MEDICARE, OTHER, SELFPAY ==
[2024-10-14 14:08] LABS: PSA, Free % 12.1 % (.)
== END | disposition home or self-care (01) ==
PROVIDERS: PCP Nurse Practitioner; Visit Provider Nurse Practitioner
DX: C61 Malignant neoplasm of prostate (principal)
CPT/HCPCS: 84153; 84154

== ENCOUNTER → 2024-12-30 | Outpatient (CLI) | payer MEDICARE, OTHER, SELFPAY ==
[2025-01-03 12:08] LABS: PSA, Free 0.47 ng/mL; PSA, Free % 10.2 % (.); PSA, Total Ultrasensitive 4.620 ng/mL (0.000-4.000)
== END | disposition home or self-care (01) ==
PROVIDERS: PCP Nurse Practitioner; Visit Provider Nurse Practitioner
DX: C61 Malignant neoplasm of prostate (principal); R97.20 Elevated prostate specific antigen [PSA]
CPT/HCPCS: 84153; 84154

== ENCOUNTER → 2025-04-18 | Outpatient (CLI) | payer MEDICARE, OTHER, SELFPAY ==
--- OUTSIDE RECORDS SUMMARY | 2025-04-18 21:41 | XMS RPT_ITS | CCD ---
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 the TPSA assay method for the [email or web address] chemistry system. Values obtained with different assay methods cannot be used interchangably. When changing PSA assays in the course of monitoring a patient, additional sequential testing should be carried out to confirm baseline values. Performed By: #### L 501.9940, L3110.0500 #### [facility] [address] [place], [place], [id number] Comprehensive Met[facility] ilon 04-05-2024 Albumin [Mass/Vol] 3.8 g/dL Normal 3.2-5.0 [facility] Comment on above: Performed By: #### L 500.4100, L503.0105, L500.4050, L501.9940 #### [facility] [address] [place] [place], [address] Albumin/Globulin [Mass ratio] 1.2 {ratio} Normal 0.9-2.4 [facility] Comment on above: Performed By: #### L 500.4100, L503.0105, L500.4050, L501.9940 #### [facility] [address] [place], [address] ALK P 67 U/L Normal 45-117 [facility] Comment on above: Performed By: #### L 500.4100, L503.0105, L500.4050, [id number] #### [facility] [address] [place], [address] ALT [Catalytic activity/Vol] 39 U/L Normal 16-61 [facility] Comment on above: Performed By: #### L 500.4100, L503.0105, L500.4050, L501.9940 #### [facility] [address] [place], [address] AST [Catalytic activity/Vol] 27 U/L Normal 15-37 [facility] Comment on above: Performed By: #### L 500.4100, L503.0105, L500.4050, L501.9940 #### [facility] [address] [place], [address] Bilirubin [Mass/Vol] 0.60 mg/dL Normal 0.20-1.00 [facility] Comment on above: Result Comment: For patients on eltrombopag therapy, use of Dimension Letcher TBIL is not recommended. Performed By: #### L 500.4100, L503.0105, L500.4050, L501.9940 #### [facility] [address] [place], [address] BUN/CRE 12.7 RATIO Normal 10-20 [facility] Comment on above: Performed By: #### L 500.4100, L503.0105, L500.4050, L501.9940 #### [facility] [address] [place], [address] CA,Total 9.2 mg/dL Normal 8.5-10.1 [facility] Comment on above: Performed By: #### L 500.4100, L503.0105, L500.4050, L501.9940 #### [facility] [address] [place], [address] Chloride [Moles/Vol] 103 mmol/L Normal 98-107 [facility] Comment on above: Performed By: #### L 500.4100, L503.0105, L500.4050, L501.9940 #### [facility] [address] [place], [address] CO2 [Moles/Vol] 27.0 mmol/L Normal 21.0-32.0 [facility] Comment on above: Performed By: #### L 500.4100, L503.0105, L500.4050, L501.9940 #### [facility] [address] [place], [address] Creatinine [Mass/Vol] 1.18 mg/dL Normal 0.70-1.30 [facility] Comment on above: Result Comment: The validity of the calculated GFR GFRAA in patients over 70 years has not been determined. Clinical correlation is essential. Performed By: #### L 500.4100, L503.0105, L500.4050, L501.9940 #### [facility] [address] [place], [address] EST GFR - AA 79 mL/min Normal >60 [facility] Comment on above: Result Comment: Afri can [place] GFR Calc Performed By: #### L 500.4100, L503.0105, L500.4050, L501.9940 #### [facility] [address] [place], [address] GAP 7 Normal 5-15 [facility] Comment on above: Performed By: #### L 500.4100, L503.0105, L500.4050, L501.9940 #### [facility] [address] [place], [address] GFR/1.73 sq M.predicted among non-blacks MDRD (S/P/Bld) [Vol rate/Area] 65 mL/min/{1.73_m2} Normal >60 [facility] Comment on above: Result Comment: Non- GFR Calc Performed By: #### L 500.4100, L503.0105, L500.4050, L501.9940 #### [facility] [address] [place], [address] Globulin (S) [Mass/Vol] 3.1 g/dL Normal 2.2-4.2 [facility] Comment on above: Performed By: #### L 500.4100, L503.0105, L500.4050, L501.9940 #### [facility] [address] [place], [address] Glucose [Mass/Vol] 147 mg/dL High 74-106 [facility] Comment on above: Result Comment: Fast ing Glucose result greater than or equal to 126 mg/dL suggests DIABETES MELLITUS per A.D.A. criteria. Performed By: #### L 500.4100, L503.0105, L500.4050, L501.9940 #### [facility] [address] [place], [address] Potassium [Moles/Vol] 4.3 mmol/L Normal 3.5-5.1 [facility] Comment on above: Performed By: #### L 500.4100, L503.0105, L500.4050, L501.9940 #### [facility] [address] [place], [address] Sodium [Moles/Vol] 137 mmol/L Normal 136-145 [facility] Comment on above: Performed By: #### L 500.4100, L503.0105, L500.4050, L501.9940 #### [facility] [address] [place], [address] T PROT 6.9 g/dL Normal 6.4-8.2 [facility] Comment on above: Performed By: #### L 500.4100, L503.0105, L500.4050, L501.9940 #### [facility] [address] [place], [address] Urea nitrogen [Mass/Vol] 15 mg/dL Normal 7-18 [facility] Comment on above: Performed By: #### L 500.4100, L503.0105, L500.4050, L501.9940 #### [facility] [address] [place], [address] Lipid Profileon 04-05-2024 Cholesterol [Mass/Vol] 185 mg/dL Normal 200 [facility] Comment on above: Result Comment: <200 mg/dL Desirable 200-240 mg/dL Borderline >240 mg/dL High Risk Performed By: #### L 500.4100, L503.0105, L500.4050, L501.9940 #### [facility] [address] [place], [address] Cholesterol in HDL [Mass/Vol] 65 mg/dL Normal [facility] Comment on above: Result Comment: The drugs N-Acetylcysteine and Metamizole may falsely depress this assay. Reference Range HDL <40 mg/dL Low HDL Cholesterol HDL >or= 60 mg/dL High HDL Cholesterol Performed By: #### L 500.4100, L503.0105, L500.4050, L501.9940 #### [facility] [address] [place], [address] Cholesterol in LDL [Mass/Vol] 94 mg/dL Normal 0-130 [facility] Comment on above: Performed By: #### L 500.4100, L503.0105, L500.4050, L501.9940 #### [facility] [address] [place], [address] Cholesterol in VLDL [Mass/Vol] 26 mg/dL Normal 5-40 [facility] Comment on above: Performed By: #### L 500.4100, L503.0105, L500.4050, L501.9940 #### [facility] [address] [place], [address] Triglyceride [Mass/Vol] 132 mg/dL Normal [facility] Comment on above: Result Comment: The drugs N-Acetylcysteine and Metamizole may falsely depress this assay. Serum Triglycerides Reference Interval Normal <150 mg/dL Borderline high 150 - 199 mg/dL High 200 - 499 mg/dL Very High > or = 500 mg/dL Performed By: #### L 500.4100, L503.0105, L500.4050, L501.9940 #### [facility] [address] [place], [address] PSA,Total- Diagnosticon 10-0 PSA, DIAGNOSTIC 4.97 ng/mL High 0.0-4.0 [facility] Comment on above: Result Comment: This test was performed using the TPSA assay method for the [email or web address] chemistry system. Values obtained with different assay methods cannot be used interchangably. When changing PSA assays in the course of monitoring a patient, additional sequential testing should be carried out to confirm baseline values. Performed By: #### L 500.4100, L503.0105, L500.4050, L501.9940 #### [facility] [address] [place], [address] Vitamin B12on 04-05-2024 Cobalamin (Vitamin B12) [Mass/Vol] 346 pg/mL Normal 211-911 [facility] Comment on above: Performed By: #### L 500.4100, L503.0105, L500.4050, L501.9940 #### [facility] [address] [place], [address] Basophil percentageOrdered B y: Lorie Woodruff on 09-18-2023 Basophil percentage 4.75 ng/mL 0.0-4.0 [facility] Comment on above: This test was perfor med using the TPSA assay method for [email or web address] chemistry system. Values obtained with differentassay methods cannot be used interchangably.When changing PSA assays in the course of monitoring apatient, additional sequential testing should be carriedout to confirm baseline values. No Panel InformationOrdered By: Lorie Woodruff on 06-17-2023 Percent Free Prostate Specific Ag 0.58 ng/mL N/A [facility] Comment on above: [employer] ECLIA methodol ogy. Prostate Specific Ag, Ultra-Sensitv 4.460 ng/mL 0.000-4.000 [facility] Comment on above: [employer] ECLIA methodol ogy.According to the [place] [employer], Serum PSAshould decrease and remain at undetectable levels afterradical prostatectomy. The AUA defines biochemicalrecurrence as an initial PSA value 0.200 ng/mL or greaterfollowed by a subsequent confirmatory PSA value 0.200 ng/mLor greater. Values obtained with different assay methods orkits cannot be used interchangeably. Results cannot beinterpreted as absolute evidence of the presence or absenceof malignant disease. Serum or plasma free prostat e specific antigen/total prostate specific antigen ratioOrdered By: Lorie Woodruff on 06-17-2023 Free PSA/Total PSA [Mass fraction] 13.0 % . [facility] Comment on above: The table below list s the probability of prostate cancer formen with non-suspicious ZULAY results and total PSA between4 and 10 ng/mL, by patient age (Shan et al, MELODY 1998,279:1542). % Free PSA 50-64 yr 65-75 yr 0.00-10.00% 56% 55% 10.01-15.00% 24% 35% 15.01-20.00% 17% 23% 20.01-25.00% 10% 20% >25.00% 5% 9%Please note: Shan et al did not make specific recommendations regarding the use of percent free PSA for any other population of men.Performed at: [facility] [employer] [facility] [id number] Director: Shaq Roberson PhD, Phone: [phone] Absolute lymphocyte countOrd ered By: Lorie Woodruff on 12-10-2022 Lymphocytes Auto (Unsp spec) [#/Vol] 2.44 10*3/uL 0.83-4.51 [facility] Basophil percentageOrdered B y: Lorie Woodruff on 12-10-2022 Basophils/100 WBC (Bld) 0.8 % 0-1 [facility] Bilirubin [Mass/Vol] 0.30 mg/dL 0.20-1.00 [facility] Comment on above: For patients on eltr ombopag therapy, use of Dimension Letcher TBIL is not recommended. Chloride [Moles/Vol] 106 mmol/L 98-107 [facility] Cholesterol [Mass/Vol] 199 mg/dL <200 [facility] Comment on above: <200 mg/dL Desirable 200-240 mg/dL Borderline >240 mg/dL High Risk Eosinophils/100 WBC (Bld) 3.5 % 0-5 [facility] Glucose [Mass/Vol] 93 mg/dL 74-106 [facility] Neutrophils (Bld) [#/Vol] 3.9 10*3/uL 2.0-7.7 [facility] Neutrophils/100 WBC (Bld) 50.3 % 47-70 [facility] Potassium [Moles/Vol] 4.4 mmol/L 3.5-5.1 [facility] Protein [Mass/Vol] 7.2 g/dL 6.4-8.2 [facility] Sodium [Moles/Vol] 139 mmol/L 136-145 [facility] Triglyceride [Mass/Vol] 289 mg/dL <199 [facility] Comment on above: The drugs N-Acetylcy steine and Metamizole may falsely depress this assay.Serum Triglycerides Reference Interval Normal <150 mg/dL Borderline high 150 - 199 mg/dL High 200 - 499 mg/dL Very High > or = 500 mg/dL WBC (Bld) [#/Vol] 7.7 10*3/uL 4.4-11.0 [facility] Blood erythrocytes count (nu mber/volume)Ordered By: Lorie Woodruff on 12-10-2022 RBC (Bld) [#/Vol] 4.61 10*6/uL 4.6-6.2 [facility] Blood hemoglobin measurement (mass/volume)Ordered By: Lorie Woodruff on 12-10-2022 Hemoglobin (Bld) [Mass/Vol] 15.1 g/dL 13.0-16.5 [facility] Blood lymphocytes/100 leukoc ytesOrdered By: Lorie Woodruff on 12-10-2022 Lymphocytes/100 WBC (Bld) 31.5 % 19-41 [facility] Blood monocytes/100 leukocyt esOrdered By: Lorie Woodruff on 12-10-2022 Monocytes/100 WBC (Bld) 13.6 % 0-10 [facility] Blood platelet mean volumeOr dered By: Lorie Woodruff on 12-10-2022 Platelet mean volume (Bld) [Entitic vol] 11.9 fL 6.2-12.0 [facility] Determination of erythrocyte mean corpuscular volume (MCV)Ordered By: Lorie Woodruff on 12-10-2022 MCV (RBC) [Entitic vol] 99.3 fL 80-94 [facility] Hematocrit Auto (Bld) [Volum e fraction]Ordered By: Lorie Woodruff on 12-10-2022 Hematocrit (Bld) [Volume fraction] 45.8 % 40-54 [facility] - Chemistry and C hemistry - challengeOrdered By: Lorie Woodruff on 12-10-2022 ALP [Catalytic activity/Vol] 70 U/L 45-117 [facility] ALT [Catalytic activity/Vol] 46 U/L 16-61 [facility] CO2 [Moles/Vol] 27.0 mmol/L 21.0-32.0 [facility] Globulin (S) [Mass/Vol] 3.6 g/dL 2.2-4.2 [facility] Urea nitrogen/Creatinine [Mass ratio] 18.6 mg/mg 10-20 [facility] - Hematology and Cell countsOrdered By: Lorie Woodruff on 12-10-2022 Erythrocyte distribution width (RBC) [Entitic vol] 47.8 fL 35.1-43.9 [facility] Erythrocyte distribution width (RBC) [Ratio] 13.0 % 11.6-14.6 [facility] Immature granulocytes/100 WBC (Bld) 0.300 % 0.0-0.9 [facility] Comment on above: IG% - Immature Granu locytes (promyelocytes, myelocytes and metamyelocytes) > 1% indicates that a LEFT SHIFT is Present. MCH (RBC) [Entitic mass] 32.8 pg 27.0-32.0 [facility] Nucleated RBC/100 WBC (Bld) [Ratio] 0 % 0-5 [facility] MCHC Auto (RBC) [Mass/Vol]Or dered By: Lorie Woodruff on 12-10-2022 MCHC (RBC) [Mass/Vol] 33.0 g/dL 32-36 [facility] No Panel InformationOrdered By: Lorie Woodruff on 12-10-2022 Estimated GFR (MDRD) Amer 100 mL/min >60 [facility] Comment on above: GFR Calc Estimated GFR (MDRD) Non-Af Amer 82 mL/min >60 [facility] Comment on above: Non- GFR Calc Prostate Specific Antigen Total 3.96 ng/mL 0.0-4.0 [facility] Comment on above: This test was perfor med using the TPSA assay method for [email or web address] chemistry system. Values obtained with differentassay methods cannot be used interchangably.When changing PSA assays in the course of monitoring apatient, additional sequential testing should be carriedout to confirm baseline values. Platelets bldOrdered By: Mike Woodruff on 12-10-2022 Platelets (Bld) [#/Vol] 246 10*3/uL 150-450 [facility] Serum or plasma albumin иван urement (mass/volume)Ordered By: Lorie Woodruff on 12-10-2022 Albumin [Mass/Vol] 3.6 g/dL 3.2-5.0 [facility] Serum or plasma albumin/glob ulin mass ratioOrdered By: Lorie Woodruff on 12-10-2022 Albumin/Globulin [Mass ratio] 1.0 {ratio} 0.9-2.4 [facility] Serum or plasma calcium иван urement (mass/volume)Ordered By: Lorie Woodruff on 12-10-2022 Calcium [Mass/Vol] 9.0 mg/dL 8.5-10.1 [facility] Serum or plasma cholesterol in HDL measurement (mass/volume)Ordered By: Lorie Woodruff on 12-10-2022 Cholesterol in HDL [Mass/Vol] 59 mg/dL >40 [facility] Comment on above: The drugs N-Acetylcy steine and Metamizole may falsely depress this assay. Reference Range HDL <40 mg/dL Low HDL Cholesterol HDL >or= 60 mg/dL High HDL Cholesterol Serum or plasma cholesterol in VLDL measurement (mass/volume)Ordered By: Lorie Woodruff on 12-10-2022 Cholesterol in VLDL [Mass/Vol] 58 mg/dL 5-40 [facility] Serum or plasma creatinine m easurement (mass/volume)Ordered By: Lorie Woodruff on 12-10-2022 Creatinine [Mass/Vol] 0.97 mg/dL 0.70-1.30 [facility] Comment on above: The validity of the calculated GFR & GFRAA in patients over 70 years has not been determined. Clinical correlation is essential. Serum or plasma low density lipoprotein (LDL) cholesterol measurement (mass/volume)Ordered By: Lorie Woodruff on 12-10-2022 Cholesterol in LDL [Mass/Vol] 82 mg/dL 0-130 [facility] Serum or plasma urea nitroge n measurement (mass/volume)Ordered By: Lorie Woodruff on 12-10-2022 Urea nitrogen [Mass/Vol] 18 mg/dL 7-18 [facility] Thin prep Papanicolaou smear with manual screeningOrdered By: Lorie Woodruff on 12-10-2022 Thin prep Papanicolaou smear with manual screening 26 U/L 15-37 [facility] Thin prep Papanicolaou smear with manual screening 6 5-15 [facility] No Panel InformationOrdered By: Lorie Woodruff on 09-18-2022 Percent Free Prostate Specific Ag 0.40 ng/mL N/A [facility] Comment on above: [employer] ECLIA methodol ogy. Prostate Specific Ag, Ultra-Sensitv 2.860 ng/mL 0.000-4.000 [facility] Comment on above: [employer] ECLIA methodol ogy.According to the [place] [employer], Serum PSAshould decrease and remain at undetectable levels afterradical prostatectomy. The AUA defines biochemicalrecurrence as an initial PSA value 0.200 ng/mL or greaterfollowed by a subsequent confirmatory PSA value 0.200 ng/mLor greater. Values obtained with different assay methods orkits cannot be used interchangeably. Results cannot beinterpreted as absolute evidence of the presence or absenceof malignant disease. Prostate Specific Antigen Total 3.45 ng/mL 0.0-4.0 [facility] Comment on above: This test was perfor med using the TPSA assay method for [employer] chemistry system. Values obtained with differentassay methods cannot be used interchangably.When changing PSA assays in the course of monitoring apatient, additional sequential testing should be carriedout to confirm baseline values. Serum or plasma free prostat e specific antigen/total prostate specific antigen ratioOrdered By: Lorie Woodruff on 09-18-2022 Free PSA/Total PSA [Mass fraction] 14.0 % . [facility] Comment on above: The table below list s the probability of prostate cancer formen with non-suspicious ZULAY results and total PSA between4 and 10 ng/mL, by patient age (Shan et al, MELODY 1998,279:1542). % Free PSA 50-64 yr 65-75 yr 0.00-10.00% 56% 55% 10.01-15.00% 24% 35% 15.01-20.00% 17% 23% 20.01-25.00% 10% 20% >25.00% 5% 9%Please note: Shan et al did not make specific recommendations regarding the use of percent free PSA for any other population of men.Performed at: [address] [id number] Director: Shaq Roberson PhD, Phone: [phone] No Panel InformationOrdered By: Tonny Mohan on 08-17-2022 Troponin I High Sensitivity 7 pg/mL 3.0-78.0 [facility] Comment on above: Please Note: New Yeni t Units and Gender Specific Reference Ranges. For more information see Policy Stat Procedure [employer]cher High Sensitivity Troponin (TNIH) and attachments. Absolute lymphocyte countOrd ered By: Tonny Mohan on 08-16-2022 Lymphocytes Auto (Unsp spec) [#/Vol] 2.24 10*3/uL 0.83-4.51 [facility] Basophil percentageOrdered B y: Tonny Mohan on 08-16-2022 Basophils/100 WBC (Bld) 1.2 % 0-1 [facility] Chloride [Moles/Vol] 108 mmol/L 98-107 [facility] Eosinophils/100 WBC (Bld) 6.7 % 0-5 [facility] Glucose [Mass/Vol] 132 mg/dL 74-106 [facility] Comment on above: Fasting Glucose resu lt greater than or equal to 126 mg/dL suggests DIABETES MELLITUS per A.D.A. criteria. Neutrophils (Bld) [#/Vol] 2.8 10*3/uL 2.0-7.7 [facility] Neutrophils/100 WBC (Bld) 39.0 % 47-70 [facility] Potassium [Moles/Vol] 3.9 mmol/L 3.5-5.1 [facility] Sodium [Moles/Vol] 141 mmol/L 136-145 [facility] WBC (Bld) [#/Vol] 7.3 10*3/uL 4.4-11.0 [facility] Blood erythrocytes count (nu mber/volume)Ordered By: Tonny Mohan on 08-16-2022 RBC (Bld) [#/Vol] 4.56 10*6/uL 4.6-6.2 [facility] Blood hemoglobin measurement (mass/volume)Ordered By: Tonny Mohan on 08-16-2022 Hemoglobin (Bld) [Mass/Vol] 14.8 g/dL 13.0-16.5 [facility] Blood lymphocytes/100 leukoc ytesOrdered By: Tonny Mohan on 08-16-2022 Lymphocytes/100 WBC (Bld) 30.8 % 19-41 [facility] Blood manual differential co mment interpretation (narrative result)Ordered By: Tonny Mohan on 08-16-2022 Manual differential comment Tommy (Bld) [Interp] SCANNED [facility] Comment on above: MONOCYTOSIS NOTED Blood monocytes/100 leukocyt esOrdered By: Tonny Mohan on 08-16-2022 Monocytes/100 WBC (Bld) 22.0 % 0-10 [facility] Blood platelet mean volumeOr dered By: Tonny Mohan on 08-16-2022 Platelet mean volume (Bld) [Entitic vol] 11.4 fL 6.2-12.0 [facility] Determination of erythrocyte mean corpuscular volume (MCV)Ordered By: Tonny Mohan on 08-16-2022 MCV (RBC) [Entitic vol] 96.3 fL 80-94 [facility] Hematocrit Auto (Bld) [Volum e fraction]Ordered By: Tonny Mohan on 08-16-2022 Hematocrit (Bld) [Volume fraction] 43.9 % 40-54 [facility] - Chemistry and C hemistry - challengeOrdered By: Tonny Mohan on 08-16-2022 CO2 [Moles/Vol] 23.0 mmol/L 21.0-32.0 [facility] Magnesium [Mass/Vol] 2.2 mg/dL 1.6-2.6 [facility] Urea nitrogen/Creatinine [Mass ratio] 19.3 mg/mg 10-20 [facility] - Hematology and Cell countsOrdered By: Tonny Mohan on 08-16-2022 Erythrocyte distribution width (RBC) [Entitic vol] 47.0 fL 35.1-43.9 [facility] Erythrocyte distribution width (RBC) [Ratio] 13.2 % 11.6-14.6 [facility] Immature granulocytes/100 WBC (Bld) 0.300 % 0.0-0.9 [facility] Comment on above: IG% - Immature Granu locytes (promyelocytes, myelocytes and metamyelocytes) > 1% indicates that a LEFT SHIFT is Present. MCH (RBC) [Entitic mass] 32.5 pg 27.0-32.0 [facility] Nucleated RBC/100 WBC (Bld) [Ratio] 0 % 0-5 [facility] MCHC Auto (RBC) [Mass/Vol]Or dered By: Tonny Mohan on 08-16-2022 MCHC (RBC) [Mass/Vol] 33.7 g/dL 32-36 [facility] No Panel InformationOrdered By: Tonny Mohan on 08-16-2022 D-Dimer Quantitative (PE/DVT) 0.58 FEU/ug/m 0.27-0.49 [facility] Comment on above: D-Dimer ELEVATED (>0 .49): Additional studies and clinicalassessments are indicated to conclude diagnosis of:Deep Vein Thrombosis (DVT) or Pulmonary Embolism (PE)CRITICAL VALUE VERIFIED. CALLED TO Jennifer SHAY RN ER08/17/22 0035 Viet aRm.RESULTS READ BACK BY SAME. Estimated Creatinine Clearance Calc 79.23 ml/min [facility] Estimated GFR (MDRD) Amer 98 mL/min >60 [facility] Comment on above: GFR Calc Estimated GFR (MDRD) Non-Af Amer 81 mL/min >60 [facility] Comment on above: Non- GFR Calc Platelets bldOrdered By: Kodak Mohan on 08-16-2022 Platelets (Bld) [#/Vol] 251 10*3/uL 150-450 [facility] Serum or plasma calcium иван urement (mass/volume)Ordered By: Tonny Mohan on 08-16-2022 Calcium [Mass/Vol] 8.9 mg/dL 8.5-10.1 [facility] Serum or plasma creatinine m easurement (mass/volume)Ordered By: Tonny Mohan on 08-16-2022 Creatinine [Mass/Vol] 0.99 mg/dL 0.70-1.30 [facility] Comment on above: The validity of the calculated GFR & GFRAA in patients over 70 years has not been determined. Clinical correlation is essential. Serum or plasma urea nitroge n measurement (mass/volume)Ordered By: Tonny Mohan on 08-16-2022 Urea nitrogen [Mass/Vol] 19 mg/dL 7-18 [facility] Thin prep Papanicolaou smear with manual screeningOrdered By: Tonny Mohan on 08-16-2022 Thin prep Papanicolaou smear with manual screening 10 5-15 [facility] Absolute lymphocyte countOrd ered By: Lorie Woodruff on 04-22-2022 Lymphocytes Auto (Unsp spec) [#/Vol] 2.28 10*3/uL 0.83-4.51 [facility] Basophil percentageOrdered B y: Lorie Woodruff on 04-22-2022 Basophils/100 WBC (Bld) 0.9 % 0-1 [facility] Bilirubin [Mass/Vol] 0.70 mg/dL 0.20-1.00 [facility] Comment on above: For patients on eltr ombopag therapy, use of Dimension Letcher TBIL is not recommended. Chloride [Moles/Vol] 105 mmol/L 98-107 [facility] Eosinophils/100 WBC (Bld) 2.8 % 0-5 [facility] Glucose [Mass/Vol] 158 mg/dL 74-106 [facility] Comment on above: Fasting Glucose resu lt greater than or equal to 126 mg/dL suggests DIABETES MELLITUS per A.D.A. criteria. Neutrophils (Bld) [#/Vol] 5.8 10*3/uL 2.0-7.7 [facility] Neutrophils/100 WBC (Bld) 60.0 % 47-70 [facility] Potassium [Moles/Vol] 4.5 mmol/L 3.5-5.1 [facility] Protein [Mass/Vol] 7.4 g/dL 6.4-8.2 [facility] Sodium [Moles/Vol] 137 mmol/L 136-145 [facility] WBC (Bld) [#/Vol] 9.7 10*3/uL 4.4-11.0 [facility] Blood erythrocytes count (nu mber/volume)Ordered By: Lorie Woodruff on 04-22-2022 RBC (Bld) [#/Vol] 4.68 10*6/uL 4.6-6.2 [facility] Blood hemoglobin measurement (mass/volume)Ordered By: Lorie Woodruff on 04-22-2022 Hemoglobin (Bld) [Mass/Vol] 15.7 g/dL 13.0-16.5 [facility] Blood lymphocytes/100 leukoc ytesOrdered By: Lorie Woodruff on 04-22-2022 Lymphocytes/100 WBC (Bld) 23.5 % 19-41 [facility] Blood monocytes/100 leukocyt esOrdered By: Lorie Woodruff on 04-22-2022 Monocytes/100 WBC (Bld) 12.6 % 0-10 [facility] Blood platelet mean volumeOr dered By: Lorie Woodruff on 04-22-2022 Platelet mean volume (Bld) [Entitic vol] 11.6 fL 6.2-12.0 [facility] Determination of erythrocyte mean corpuscular volume (MCV)Ordered By: Lorie Woodruff on 04-22-2022 MCV (RBC) [Entitic vol] 97.9 fL 80-94 [facility] Hematocrit Auto (Bld) [Volum e fraction]Ordered By: Lorie Woodruff on 04-22-2022 Hematocrit (Bld) [Volume fraction] 45.8 % 40-54 [facility] Laboratory - Chemistry and C hemistry - challengeOrdered By: Lorie Woodruff on 04-22-2022 ALP [Catalytic activity/Vol] 71 U/L 45-117 [facility] ALT [Catalytic activity/Vol] 49 U/L 16-61 [facility] CO2 [Moles/Vol] 27.0 mmol/L 21.0-32.0 [facility] Globulin (S) [Mass/Vol] 3.4 g/dL 2.2-4.2 [facility] Urea nitrogen/Creatinine [Mass ratio] 13.5 mg/mg 10-20 [facility] Laboratory - Hematology and Cell countsOrdered By: Lorie Woodruff on 04-22-2022 Erythrocyte distribution width (RBC) [Entitic vol] 49.1 fL 35.1-43.9 [facility] Erythrocyte distribution width (RBC) [Ratio] 13.5 % 11.6-14.6 [facility] Immature granulocytes/100 WBC (Bld) 0.200 % 0.0-0.9 [facility] Comment on above: IG% - Immature Granu locytes (promyelocytes, myelocytes and metamyelocytes) > 1% indicates that a LEFT SHIFT is Present. MCH (RBC) [Entitic mass] 33.5 pg 27.0-32.0 [facility] Nucleated RBC/100 WBC (Bld) [Ratio] 0 % 0-5 [facility] MCHC Auto (RBC) [Mass/Vol]Or dered By: Lorie Woodruff on 04-22-2022 MCHC (RBC) [Mass/Vol] 34.3 g/dL 32-36 [facility] No Panel InformationOrdered By: Lorie Woodruff on 04-22-2022 Estimated GFR (MDRD) Amer 74 mL/min >60 [facility] Comment on above: GFR Calc Estimated GFR (MDRD) Non-Af Amer 61 mL/min >60 [facility] Comment on above: Non- GFR Calc Percent Free Prostate Specific Ag 0.46 ng/mL N/A [facility] Comment on above: Darryl ECLIA methodol ogy. Prostate Specific Ag, Ultra-Sensitv 3.200 ng/mL 0.000-4.000 [facility] Comment on above: Darryl ECLIA methodol ogy.According to the [place] [employer], Serum PSAshould decrease and remain at undetectable levels afterradical prostatectomy. The AUA defines biochemicalrecurrence as an initial PSA value 0.200 ng/mL or greaterfollowed by a subsequent confirmatory PSA value 0.200 ng/mLor greater. Values obtained with different assay methods orkits cannot be used interchangeably. Results cannot beinterpreted as absolute evidence of the presence or absenceof malignant disease. Platelets bldOrdered By: Mike Woodruff on 04-22-2022 Platelets (Bld) [#/Vol] 284 10*3/uL 150-450 [facility] Serum or plasma albumin иван urement (mass/volume)Ordered By: Lorie Woodruff on 04-22-2022 Albumin [Mass/Vol] 4.0 g/dL 3.2-5.0 [facility] Serum or plasma albumin/glob ulin mass ratioOrdered By: Lorie Woodruff on 04-22-2022 Albumin/Globulin [Mass ratio] 1.2 {ratio} 0.9-2.4 [facility] Serum or plasma calcium иван urement (mass/volume)Ordered By: Lorie Woodruff on 04-22-2022 Calcium [Mass/Vol] 9.1 mg/dL 8.5-10.1 [facility] Serum or plasma creatinine m easurement (mass/volume)Ordered By: Lorie Woodruff on 04-22-2022 Creatinine [Mass/Vol] 1.26 mg/dL 0.70-1.30 [facility] Comment on above: The validity of the calculated GFR & GFRAA in patients over 70 years has not been determined. Clinical correlation is essential. Serum or plasma free prostat e specific antigen/total prostate specific antigen ratioOrdered By: Lorie Woodruff on 04-22-2022 Free PSA/Total PSA [Mass fraction] 14.4 % . [facility] Comment on above: The table below list s the probability of prostate cancer formen with non-suspicious ZULAY results and total PSA between4 and 10 ng/mL, by patient age (Shan et al, MELODY 1998,279:1542). % Free PSA 50-64 yr 65-75 yr 0.00-10.00% 56% 55% 10.01-15.00% 24% 35% 15.01-20.00% 17% 23% 20.01-25.00% 10% 20% >25.00% 5% 9%Please note: Shan et al did not make specific recommendations regarding the use of percent free PSA for any other population of men.Performed at: [facility] [id number] Director: Shaq Roberson PhD, Phone: [phone] Serum or plasma urea nitroge n measurement (mass/volume)Ordered By: Lorie Woodruff on 04-22-2022 Urea nitrogen [Mass/Vol] 17 mg/dL 7-18 [facility] Thin prep Papanicolaou smear with manual screeningOrdered By: Lorie Woodruff on 04-22-2022 Thin prep Papanicolaou smear with manual screening 32 U/L 15-37 [facility] Thin prep Papanicolaou smear with manual screening 5 5-15 [facility] No Panel Informationon 12-19 Percent Free Prostate Specific Ag 0.63 ng/mL N/A [facility] Work Phone: Comment on above: Darryl ECLIA methodol ogy. Prostate Specific Antigen Total 4.1 ng/mL 0.0-4.0 [facility] Work Phone: Comment on above: Darryl ECLIA methodol ogy.According to the [place] [employer], Serum PSAshould decrease and remain at undetectable levels afterradical prostatectomy. The AUA defines biochemicalrecurrence as an initial PSA value 0.2 ng/mL or greaterfollowed by a subsequent confirmatory PSA value 0.2 ng/mLor greater. Values obtained with different assay methods orkits cannot be used interchangeably. Results cannot beinterpreted as absolute evidence of the presence or absenceof malignant disease. Serum or plasma free prostat e specific antigen/total prostate specific antigen ratioon 12-19-2021 Free PSA/Total PSA [Mass fraction] 15.4 % . [facility] Work Phone: Comment on above: The table below list s the probability of prostate cancer formen with non-suspicious ZULAY results and total PSA between4 and 10 ng/mL, by patient age (Shan et al, MELODY 1998,279:1542). % Free PSA 50-64 yr 65-75 yr 0.00-10.00% 56% 55% 10.01-15.00% 24% 35% 15.01-20.00% 17% 23% 20.01-25.00% 10% 20% >25.00% 5% 9%Please note: Shan et al did not make specific recommendations regarding the use of percent free PSA for any other population of men.Performed at: [facility] [employer] [id number] Director: Shaq Roberson PhD, Phone: [phone] Absolute lymphocyte counton 10-24-2021 Lymphocytes Auto (Unsp spec) [#/Vol] 2.60 10*3/uL 0.83-4.51 [facility] Work Phone: Basophil percentageon 2021 Basophils/100 WBC (Bld) 1.1 % 0-1 [facility] Work Phone: Bilirubin [Mass/Vol] 0.30 mg/dL 0.20-1.00 [facility] Work Phone: Comment on above: For patients on eltr ombopag therapy, use of Dimension Letcher TBIL is not recommended. Chloride [Moles/Vol] 107 mmol/L 98-107 [facility] Work Phone: Cholesterol [Mass/Vol] 186 mg/dL <200 [facility] Work Phone: Comment on above: <200 mg/dL Desirable 200-240 mg/dL Borderline >240 mg/dL High Risk Eosinophils/100 WBC (Bld) 4.7 % 0-5 [facility] Work Phone: Glucose [Mass/Vol] 92 mg/dL 74-106 [facility] Work Phone: Neutrophils (Bld) [#/Vol] 4.7 10*3/uL 2.0-7.7 [facility] Work Phone: Neutrophils/100 WBC (Bld) 50.9 % 47-70 [facility] Work Phone: Potassium [Moles/Vol] 4.0 mmol/L 3.5-5.1 [facility] Work Phone: Protein [Mass/Vol] 6.8 g/dL 6.4-8.2 [facility] Work Phone: Sodium [Moles/Vol] 138 mmol/L 136-145 [facility] Work Phone: Triglyceride [Mass/Vol] 131 mg/dL [facility] Work Phone: Comment on above: The drugs N-Acetylcy steine and Metamizole may falsely depress this assay.Serum Triglycerides Reference Interval Normal <150 mg/dL Borderline high 150 - 199 mg/dL High 200 - 499 mg/dL Very High > or = 500 mg/dL WBC (Bld) [#/Vol] 9.2 10*3/uL 4.4-11.0 [facility] Work Phone: Blood erythrocytes count (nu mber/volume)on 10-24-2021 RBC (Bld) [#/Vol] 4.55 10*6/uL 4.6-6.2 [facility] Work Phone: Blood hemoglobin measurement (mass/volume)on 10-24-2021 Hemoglobin (Bld) [Mass/Vol] 14.7 g/dL 13.0-16.5 [facility] Work Phone: Blood lymphocytes/100 leukoc yteson 10-24-2021 Lymphocytes/100 WBC (Bld) 28.4 % 19-41 [facility] Work Phone: Blood monocytes/100 leukocyt eson 10-24-2021 Monocytes/100 WBC (Bld) 14.8 % 0-10 [facility] Work Phone: Blood platelet mean volumeon 10-24-2021 Platelet mean volume (Bld) [Entitic vol] 11.5 fL 6.2-12.0 [facility] Work Phone: Determination of erythrocyte mean corpuscular volume (MCV)on 10-24-2021 MCV (RBC) [Entitic vol] 94.9 fL 80-94 [facility] Work Phone: Hematocrit Auto (Bld) [Volum e fraction]on 10-24-2021 Hematocrit (Bld) [Volume fraction] 43.2 % 40-54 [facility] Work Phone: Laboratory - Chemistry and C hemistry - challengeon 10-24-2021 ALP [Catalytic activity/Vol] 64 U/L 45-117 [facility] Work Phone: ALT [Catalytic activity/Vol] 39 U/L 16-61 [facility] Work Phone: CO2 [Moles/Vol] 25.0 mmol/L 21.0-32.0 [facility] Work Phone: Globulin (S) [Mass/Vol] 3.3 g/dL 2.2-4.2 [facility] Work Phone: Urea nitrogen/Creatinine [Mass ratio] 21.5 mg/mg 10-20 [facility] Work Phone: Laboratory - Hematology and Cell countson 10-24-2021 Erythrocyte distribution width (RBC) [Entitic vol] 46.0 fL 35.1-43.9 [facility] Work Phone: Erythrocyte distribution width (RBC) [Ratio] 13.2 % 11.6-14.6 [facility] Work Phone: Immature granulocytes/100 WBC (Bld) 0.100 % 0.0-0.9 [facility] Work Phone: [phone] Comment on above: IG% - Immature Granu locytes (promyelocytes, myelocytes and metamyelocytes) > 1% indicates that a LEFT SHIFT is Present. MCH (RBC) [Entitic mass] 32.3 pg 27.0-32.0 [facility] Work Phone: Nucleated RBC/100 WBC (Bld) [Ratio] 0 % 0-5 [facility] Work Phone: MCHC Auto (RBC) [Mass/Vol]on 10-24-2021 MCHC (RBC) [Mass/Vol] 34.0 g/dL 32-36 [facility] Work Phone: No Panel Informationon 10-24 Estimated GFR (MDRD) Amer 99 mL/min >60 [facility] Work Phone: Comment on above: GFR Calc Estimated GFR (MDRD) Non-Af Amer 82 mL/min >60 [facility] Work Phone: Comment on above: Non- GFR Calc Prostate Specific Antigen Screen 4.56 ng/mL 0.00-4.00 [facility] Work Phone: Comment on above: This test was perfor med using the TPSA assay method for [employer] chemistry system. Values obtained with differentassay methods cannot be used interchangably.When changing PSA assays in the course of monitoring apatient, additional sequential testing should be carriedout to confirm baseline values. Platelets bldon 10-24-2021 Platelets (Bld) [#/Vol] 272 10*3/uL 150-450 [facility] Work Phone: Serum or plasma albumin иван urement (mass/volume)on 10-24-2021 Albumin [Mass/Vol] 3.5 g/dL 3.2-5.0 [facility] Work Phone: Serum or plasma albumin/glob ulin mass ratioon 10-24-2021 Albumin/Globulin [Mass ratio] 1.1 {ratio} 0.9-2.4 [facility] Work Phone: Serum or plasma calcium иван urement (mass/volume)on 10-24-2021 Calcium [Mass/Vol] 8.3 mg/dL 8.5-10.1 [facility] Work Phone: Serum or plasma cholesterol in HDL measurement (mass/volume)on 10-24-2021 Cholesterol in HDL [Mass/Vol] 64 mg/dL [facility] Work Phone: Comment on above: The drugs N-Acetylcy steine and Metamizole may falsely depress this assay. Reference Range HDL <40 mg/dL Low HDL Cholesterol HDL >or= 60 mg/dL High HDL Cholesterol Serum or plasma cholesterol in VLDL measurement (mass/volume)on 10-24-2021 Cholesterol in VLDL [Mass/Vol] 26 mg/dL 5-40 [facility] Work Phone: Serum or plasma creatinine m easurement (mass/volume)on 10-24-2021 Creatinine [Mass/Vol] 0.98 mg/dL 0.70-1.30 [facility] Work Phone: Comment on above: The validity of the calculated GFR & GFRAA in patients over 70 years has not been determined. Clinical correlation is essential. Serum or plasma low density lipoprotein (LDL) cholesterol measurement (mass/volume)on 10-24-2021 Cholesterol in LDL [Mass/Vol] 96 mg/dL 0-130 [facility] Work Phone: Serum or plasma urea nitroge n measurement (mass/volume)on 10-24-2021 Urea nitrogen [Mass/Vol] 21 mg/dL 7-18 [facility] Work Phone: Thin prep Papanicolaou smear with manual screeningon 10-24-2021 Thin prep Papanicolaou smear with manual screening 26 U/L 15-37 [facility] Work Phone: Thin prep Papanicolaou smear with manual screening 6 5-15 [facility] Work Phone: Clinical Summary: Tamela tomas 08-01-2021 number of previous outpatient psychiatric treatments [id number] OT Invalid Interpretation Code [facility] Work Phone: MC25 OP Hand Invalid Interpretation Code [facility] Work Phone: MC25 OP Hand Invalid Interpretation Code [facility] Work Phone: [facility] OP Visit Invalid Interpretation Code [facility] Work Phone: Vital Signs Date Time Vital Sign Value Performing Clinician Facility 12-30-2024 15:09-0400 Body height 180.34 cm Lorie Woodruff [facility] Work Phone: [facility] 10-12-2024 16:21-0400 Body height 180.34 cm Lorie Woodruff [facility] Work Phone: [facility] 09-18-2023 18:35-0400 Body height 180.34 cm [facility] 06-17-2023 15:21-0500 Body height 180.34 cm [facility] 12-10-2022 18:21-0400 Body height 180.34 cm [facility] 12-10-2022 18:21-0400 Body mass index (BMI) [Ratio] 26.7 kg/m2 [facility] 12-10-2022 18:21-0400 Body temperature 97.7 [degF] [facility] 12-10-2022 18:21-0400 Body weight 87.08 kg [facility] 12-10-2022 18:21-0400 Diastolic blood pressure 70 mm[Hg] [facility] 12-10-2022 18:21-0400 Heart rate 65 /min [facility] 12-10-2022 18:21-0400 Respiratory rate 18 /min [facility] 12-10-2022 18:21-0400 SaO2% (BldA) [Mass fraction] 99 % [facility] 12-10-2022 18:21-0400 Systolic blood pressure 122 mm[Hg] [facility] 09-18-2022 17:20-0400 Body height 180.34 cm [facility] 08-17-2022 03:27-0500 Diastolic blood pressure 86 mm[Hg] [facility] Lorie Woodruff [facility] Work Phone: [facility] 08-17-2022 03:27-0500 Heart rate 64 /min [facility] Lorie Woodruff [facility] Work Phone: [facility] 08-17-2022 03:27-0500 Respiratory rate 16 /min [facility] Lorie Woodruff [facility] Work Phone: [facility] 08-17-2022 03:27-0500 SaO2% (BldA) [Mass fraction] 96 % [facility] Lorie Woodruff [facility] Work Phone: [facility] 08-17-2022 03:27-0500 Systolic blood pressure 130 mm[Hg] [facility] Lorie Woodruff [facility] Work Phone: [facility] 08-16-2022 23:26-0500 Body height 180.34 cm [facility] Lorie Woodruff [facility] Work Phone: [facility] 08-16-2022 23:26-0500 Body mass index (BMI) [Ratio] 27.1 kg/m2 [facility] Lorie Woodruff [facility] Work Phone: [phone] [place] [address] 08-16-2022 23:26-0500 Body temperature 97.2 [degF] [facility] Lorie Woodruff [facility] Work Phone: [facility] 08-16-2022 23:26-0500 Body weight 88.45 kg [facility] Lorie Woodruff [facility] Work Phone: [facility] 05-09-2022 10:09-0500 Body height 180.34 cm [facility] Lorie Woodruff [facility] Work Phone: [facility] Work Phone: 05-09-2022 10:09-0500 Body mass index (BMI) [Ratio] 27.1 kg/m2 [facility] Lorie Woodruff [facility] Work Phone: [facility] 05-09-2022 10:09-0500 Body temperature 97.6 [degF] [facility] Lorie Woodruff [facility] Work Phone: [facility] 05-09-2022 10:09-0500 Body weight 88.08 kg [facility]Misty Woodruff [facility] Work Phone: [facility] 05-09-2022 10:09-0500 Diastolic blood pressure 91 mm[Hg] [facility]Misty Woodruff [facility] Work Phone: [facility] 05-09-2022 10:09-0500 Heart rate 70 /min [facility]Misty Woodruff [facility] Work Phone: [facility] 05-09-2022 10:09-0500 Respiratory rate 16 /min [facility]Misty Woodruff [facility] Work Phone: [facility] 05-09-2022 10:09-0500 SaO2% (BldA) [Mass fraction] 97 % [facility]Misty Woodruff [facility] Work Phone: [facility] 05-09-2022 10:09-0500 Systolic blood pressure 127 mm[Hg] [facility]Misty Woodruff [facility] Work Phone: [facility] 04-22-2022 17:17-0400 Body height 180.34 cm [facility] Work Phone: 04-22-2022 17:17-0400 Body mass index (BMI) [Ratio] 27.1 kg/m2 [facility] 04-22-2022 17:17-0400 Body temperature 97.9 [degF] [facility] 04-22-2022 17:17-0400 Body weight 88.45 kg [facility] 04-22-2022 17:17-0400 Diastolic blood pressure 80 mm[Hg] [facility] 04-22-2022 17:17-0400 Heart rate 101 /min [facility] 04-22-2022 17:17-0400 Respiratory rate 20 /min [facility] 04-22-2022 17:17-0400 SaO2% (BldA) [Mass fraction] 95 % [facility] 04-22-2022 17:17-0400 Systolic blood pressure 120 mm[Hg] [facility] 12-19-2021 17:16-0400 Body height 180.34 cm [facility] Work Phone: 12-19-2021 17:16-0400 Body mass index (BMI) [Ratio] 25.7 kg/m2 [facility] Work Phone: 12-19-2021 17:16-0400 Body weight 83.46 kg [facility] Work Phone: 10-22-2021 20:16-0400 Body height 180.34 cm [facility] Work Phone: 10-22-2021 20:16-0400 Body mass index (BMI) [Ratio] 27 kg/m2 [facility] Work Phone: 10-22-2021 20:16-0400 Body temperature 98.1 [degF] [facility] Work Phone: 10-22-2021 20:16-0400 Body weight 87.99 kg [facility] Work Phone: 10-22-2021 20:16-0400 Diastolic blood pressure 80 mm[Hg] [facility] Work Phone: 10-22-2021 20:16-0400 Heart rate 75 /min [facility] Work Phone: 10-22-2021 20:16-0400 Respiratory rate 18 /min [facility] Work Phone: 10-22-2021 20:16-0400 SaO2% (BldA) [Mass fraction] 96 % [facility] Work Phone: 10-22-2021 20:16-0400 Systolic blood pressure 132 mm[Hg] [facility] Work Phone: NEGATED: Highlighted [id number] 13:09-0500 Body height 175.26 cm Cindy Salguero CHERELLE [facility] Work Phone: NEGATED: Highlighted [id number] 13:050 Body height 175 cm Cindy Salguero LPN [facility] Work Phone: NEGATED: Highlighted [id number] 13:050 Body mass index (BMI) [Ratio] 28.46 kg/m2 Cindy Salguero LPN [facility] Work Phone: NEGATED: Highlighted [id number] Body weight 87.09 kg Cindy Salguero LPN [facility] Work Phone: NEGATED: Highlighted [id number] 13:050 Body weight 87 kg Cindy Salguero LPN [facility] Work Phone: Encounters Encounter Date Encounter Type Care Provider Facility Start: 12-30-2024 End: 12-30-2024 ambulatory Lorie Woodruff [facility] Work Phone: -Laboratory Specimen Start: 12-30-2024 End: 12-30-2024 Patient encounter procedure Lorie Woodruff [facility] -Laboratory Specimen Work Phone: Start: 12-30-2024 End: 12-30-2024 ambulatory Lorie Woodruff [facility] Facility:[facility] Start: 10-12-2024 End: 10-12-2024 ambulatory Lorie Woodruff BEEF KILLER-C Work Phone: [facility] Work Phone: Start: 10-12-2024 End: 10-12-2024 Patient encounter procedure Lorie Woodruff BEEF KILLER-C -Laboratory, Specimen Work Phone: Start: 10-12-2024 End: 10-12-2024 ambulatory Lorie Woodruff BEEF KILLER Facility:[facility] Start: 06-18-2024 End: 06-18-2024 Patient encounter procedure Lorie Woodruff BEEF KILLER-C -Laboratory, Specimen Work Phone: Start: 06-18-2024 End: 06-18-2024 ambulatory Lorie Woodruff BEEF KILLER Facility:[facility] Start: 04-05-2024 End: 04-05-2024 ambulatory Lorie Woodruff BEEF KILLER Facility:[facility] Start: 09-18-2023 End: 09-18-2023 ambulatory [facility] Work Phone: Start: 09-18-2023 End: 09-18-2023 Patient encounter procedure [facility]-Laboratory, Specimen Work Phone: Start: 06-17-2023 End: 06-17-2023 ambulatory [facility] Work Phone: Start: 06-17-2023 End: 06-17-2023 Patient encounter procedure [facility]-Laboratory, Specimen Work Phone: Start: 12-16-2022 End: 12-16-2022 ambulatory [facility] Work Phone: Start: 12-16-2022 End: 12-16-2022 Patient encounter procedure [facility]-Radiology, [facility] Start: 12-10-2022 End: 12-10-2022 ambulatory [facility] Work Phone: Start: 12-10-2022 End: 12-10-2022 Patient encounter procedure [facility]-Laboratory, Specimen Start: 09-18-2022 End: 09-18-2022 ambulatory [facility] Work Phone: Start: 09-18-2022 End: 09-18-2022 Patient encounter procedure [facility]-Laboratory, Specimen Start: 08-16-2022 End: 08-17-2022 Emergency department patient visit BEEF KILLER-C Lorie Woodruff BEEF KILLER Work Phone: [facility]-Emergency Department Start: 05-27-2022 End: 05-27-2022 ambulatory BEEF KILLER-C Lorie Woodruff BEEF KILLER Work Phone: [facility] Work Phone: Start: 05-27-2022 End: 05-27-2022 Patient encounter procedure BEEF KILLER-Misty Woodruff BEEF KILLER Work Phone: [facility]-Laboratory, Specimen Start: 05-09-2022 End: 05-09-2022 Patient encounter procedure BEEF KILLER-C Lorieteresa GauthierWoodruff BEEF KILLER Work Phone: [facility] Start: 04-25-2022 End: 04-25-2022 ambulatory [facility] Work Phone: Start: 04-25-2022 End: 04-25-2022 Patient encounter procedure [facility] Start: 04-22-2022 End: 04-22-2022 ambulatory [facility] Work Phone: Start: 04-22-2022 End: 04-22-2022 Patient encounter procedure [facility]-Laboratory, Specimen Start: 03-05-2022 End: 03-05-2022 ambulatory [facility] Work Phone: Start: 03-05-2022 End: 03-05-2022 Patient encounter procedure [facility]-Laboratory, Specimen Start: 12-19-2021 End: 12-19-2021 Patient encounter procedure [facility]-Laboratory, Specimen Start: 10-24-2021 End: 10-24-2021 Patient encounter procedure [facility]-Laboratory, Specimen Start: 08-01-2020 Patient encounter status [facility] Start: 05-10-2019 Patient encounter status [facility] Procedures Date Procedure Procedure Detail Performing Clinician Start: 12-30-2024 Free prostate specif ic antigen level Lorie Woodruff BEEF KILLER-C Work Phone: Comment on above: [employer] Start: 12-30-2024 Prostate specific an tigen measurement Lorie Woodruff BEEF KILLER-C Work Phone: Comment on above: [employer].According to the [place] [employer], Serum PSAshould decrease and remain at undetectable levels afterradical prostatectomy. The AUA defines biochemicalrecurrence as an initial PSA value 0.200 ng/mL or greaterfollowed by a subsequent confirmatory PSA value 0.200 ng/mLor greater. Values obtained with different assay methods orkits cannot be used interchangeably. Results cannot beinterpreted as absolute evidence of the presence or absenceof malignant disease. Start: 10-12-2024 Free prostate specif ic antigen level Lorie Woodruff BEEF KILLER-C Work Phone: Comment on above: [employer]. Start: 10-12-2024 Prostate specific an tigen measurement Lorie Woodruff BEEF KILLER-C Work Phone: Comment on above: [facility].According to the [place] [employer], Serum PSAshould decrease and remain at undetectable levels afterradical prostatectomy. The AUA defines biochemicalrecurrence as an initial PSA value 0.200 ng/mL or greaterfollowed by a subsequent confirmatory PSA value 0.200 ng/mLor greater. Values obtained with different assay methods orkits cannot be used interchangeably. Results cannot beinterpreted as absolute evidence of the presence or absenceof malignant disease. Start: 12-16-2022 X-ray of both feet Start: 08-17-2022 CT angiography of ch est with contrast BEEF KILLER-C Lorie Woodruff BEEF KILLER Work Phone: Start: 08-16-2022 Plain chest X-ray BEEF KILLER-C Lorie Woodruff BEEF KILLER Work Phone: Start: 04-25-2022 MRI of pelvis with contrast Start: 08-01-2021 End: 08-02-2021 BP scrn no perf at interval Jannet terry PA-C Work Phone: Start: 08-01-2021 End: 08-02-2021 Calc BMI abv up leonardo f/u Jannet Singh PA-C Work Phone: Start: 08-01-2021 End: 08-02-2021 Current tobacco non-user cad cap copd pv dm Jannet Singh PA-C Work Phone: Start: 08-01-2021 End: 08-02-2021 Docrev cur meds by crystal knapp PA-C Work Phone: Start: 08-01-2021 End: 08-02-2021 Osteoarthritis symptoms&funcjal status asses Jannet Singh PA-C Work Phone: Start: 08-01-2021 End: 08-02-2021 Pain neg no plan Jannet Singh PA-C Work Phone: Start: 08-01-2021 End: 08-02-2021 Patient encounter procedure Jannet terry PA-C Work Phone: NEGATED: Highlighted rowStart: 08-01-2021 End: 08-01-2021 Documentation of current medications Cindy Salguero CHERELLE Plan of Treatment Date Care Activity Detail Author Start: 08-16-2022 [facility] Start: 08-16-2021 End: 08-16-2021 Patient encounter procedure Appointment [facility] Work Phone: Patient Education CAD ED Bronchi tis, No Antibiotic (Adult) [facility] Work Phone: Patient referral [facility] Work Phone: XR Foot GE 3 Views [facility] Payers Date Payer Category Payer Medicare [id number] 2024 Self-pay [id number] 2024 Unknown [id number] 2013 Unknown [id number] Unknown [id number] Unknown [id number] Unknown [id number] Unknown [id number] Social History Date Type Detail Facility Start: 08-01-2020 End: 01-21-2023 Assertion Unknown if ever smoked [facility] Work Phone: Start: 1955 Sex Assigned At Male [facility] Start: 01-21-2023 [facility] Start: 10-15-2024 Sex Male (finding) [facility] Mental Status Date Assessment Result Facility 08-16-2022 Cognitive function Voice/Name [facility] Work Phone: Clinical Notes 06-04-2022 to 10-12-2024 Note Date & Type Note Facility 10-12-2024 Evaluation note Diagnosis Onset Date Resolution Bilateral acute otitis media acute October 12, 2024 3:03pm Cancer of prostate w/low recurrence risk (T1-2a, Jesse<7 & PSA<10) acute October 12, 2024 3:03pm [facility] Work Phone: 1(213) 434-723204-15-2025 Evaluation note* Diagnosis Onset Date Resolution Status Admit Date Bilateral acute otitis media acute October 12, 2024 3:03pm Cancer of prostate w/low recurrence risk (T1-2a, [place]<7 & PSA<10) acute October 12, 2024 3:03pm Elevated PSA acute December 30 3:05pm Prostate cancer acute December 30, 2024 3:05pm [facility] Work Phone: 1(420) 916-396506-22-2023 Evaluation note* Diagnosis Onset Date Resolution Status Cancer of prostate w/low rec urrence risk (T1-2a, Jesse<7 & PSA<10) acute Foot pain acute [facility] Work Phone: 1(622) 325-653806-16-2023 Evaluation note* Diagnosis Onset Date Resolution Status Cancer of prostate w/low rec urrence risk (T1-2a, Jesse<7 & PSA<10) acute Foot pain acute [facility] Work Phone: 1(624) 178-533203-29-2023 Evaluation note* Diagnosis Onset Date Resolution Status Cancer of prostate w/low rec urrence risk (T1-2a, Jesse<7 & PSA<10) [facility] Work Phone: 1(870) 718-833002-18-2023 Evaluation note* Diagnosis Onset Date Resolution Status Acute bacterial bronchitis a cute Bilateral acute otitis media acute Prostate cancer acute Cancer of prostate w/low rec urrence risk (T1-2a, [place]<7 & PSA<10) [facility] Work Phone: 1(186) 764-129812-06-2022 Evaluation note* Diagnosis Onset Date Resolution Status Acute bacterial bronchitis a cute Bilateral acute otitis media acute Prostate cancer acute Cancer of prostate w/low rec urrence risk (T1-2a, Jesse<7 & PSA<10) [facility] Work Phone: Evaluation noteThere may be information available, but it has not been provided by the sender.[facility] Work Phone: Evaluation note* Diagnosis Onset Date Resolution Status Wellness examination acute [facility] Work Phone: Evaluation note* Diagnosis Onset Date Resolution Status Elevated PSA [facility] Work Phone: Evaluation note* Diagnosis Onset Date Resolution Status Acute bacterial bronchitis a cute Bilateral acute otitis media acute Prostate cancer [facility] Work Phone: Evaluation note* Diagnosis Onset Date Resolution Status Abnormal PSA acute Prostate cancer [facility] Work Phone: Hospital Discharge instructions Additional Instructions Your CTA today showed coronary artery calcifications as well as dilation around the aorta near the aortic valve indicating aortic valve disease. There are no signs of blood clot or active heart damage on your work-up today but because of these findings on the CT scan talk to your family doctor about a cardiology referral. If you have any further concerns or worsening of symptoms please return [facility] the [facility]: Instructions* Instruction Description Start Date CompletedPatient advised to follow-up with Primary Care Physician for BMI management. 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 TENDON TRANSFER on 06/19/2021 Preliminary chief co mplaint data, not yet signed by the author as of Advance Directives No Advanced Directives Records Found Advance Directive Response Recorded Date/ Time Advance Directives Yes November 23 1:03pm Living Will Yes November 24, 2015 1 :03pm Power of Flavoring Machine Operator Yes November 24, 2015 1:03pm Advance Directive Response Recorded Date/ Time Advance Directives Yes April 22, 2022 3:02pm Living Will Yes April 22 3:02pm Power of Flavoring Machine Operator Yes April 22, 2022 3:02pm Advance Directive Response Recorded Date/ Time Advance Directives Yes April 22, 2022 2:02pm Living Will Yes April 22 2:02pm Power of Flavoring Machine Operator Yes April 22, 2022 2:02pm Advance Directive Response Recorded Date/ Time Advance Directives Yes April 22, 2022 2:02pm Living Will No August 16, 2 023 11:26pm Power of Flavoring Machine Operator No August 16, 2022 11:26pm Advance Directive Response Recorded Date/ Time Advance Directives Yes April 22, 2022 3:02pm Living Will No August 17, 2 023 12:26am Power of Flavoring Machine Operator No August 17, 2022 12:26am Advance Directive Response Recorded Date/ Time Advance Directives Yes January 21 1:38pm Living Will No January 21, 2023 1:38pm Power of Flavoring Machine Operator No January 21 1:38pm Advance Directive Response Recorded Date/ Time Advance Directives Yes January 21 2:38pm Living Will No January 21, 2023 2:38pm Power of Flavoring Machine Operator No January 21 2:38pm Advance Directive Response Recorded Date/ Time Advance Directives Yes January 21 2:38pm Family History No Family History Records Found Relationship Condition Age at Onset Recorded Date/T veronica Not Specified Malignant neoplasm of lung Unknown Chief Complaint and Reason for Visit Chief Complaint Annual wellness exam PE Reason for Visit Wellness examination Chief Complaint PSA) Reason for Visit Elevated PSA Chief Complaint Cough X3 weeks MALIGNANT NEOPLASM OF PROSTATE Reason for Visit Acute bacterial bron chitis Bilateral acute otitis media Prostate cancer Chief Complaint Cough X3 weeks MALIGNANT NEOPLASM OF PROSTATE consult - prostate Reason for Visit Acute bacterial bron chitis Bilateral acute otitis media Prostate cancer Cancer of prostate w/low recurrence risk (T1-2a, [place]<7 & PSA<10) Chief Complaint Cough X3 weeks MALIGNANT NEOPLASM OF PROSTATE consult - prostate chest pain Reason for Visit Acute bacterial bron chitis Bilateral acute otitis media Prostate cancer Cancer of prostate w/low recurrence risk (T1-2a, [place]<7 & PSA<10) Chief Complaint chest pain Lab (PSA) Reason for Visit Cancer of prostate w /low recurrence risk (T1-2a, Jesse<7 & PSA<10) Chief Complaint chest pain Lab (PSA) WELLNESS CHECK UP Reason for Visit Cancer of prostate w /low recurrence risk (T1-2a, Jesse<7 & PSA<10) Foot pain Chief Complaint Lab (PSA) WELLNESS CHECK UP Reason for Visit Cancer of prostate w /low recurrence risk (T1-2a, Jesse<7 & PSA<10) Foot pain Chief Complaint labs to be drawn PSA Reason for Visit Abnormal PSA Prostate cancer Chief Complaint labs to be drawn PSA labs to be drawn Reason for Visit Abnormal PSA Prostate cancer Chief Complaint Admit Date labs to be drawn October 12, 2024 3:0 3pm Reason for Visit Admit Date Bilateral acute otitis media October 12, 2024 3:03pm Cancer of prostate w/low rec urrence risk (T1-2a, Jesse<7 & PSA<10) October 12, 2024 3:03pm Chief Complaint Admit Date labs to be drawn October 12, 2024 3:0 3pm LAB PSA December 30, 2024 3:05p m Reason for Visit Admit Date Bilateral acute otitis media October 12, 2024 3:03pm Cancer of prostate w/low rec urrence risk (T1-2a, Jesse<7 & PSA<10) October 12, 2024 3:03pm Elevated PSA December 30, 2024 3:05p m Prostate cancer December 30, 2024 3:05p m Summary Purpose Additional Source Comments Reason for Visit (unrecogniz ed section and content) Reason For Visit Description Postop - subsequent visit Preliminary reason f or visit data, not yet signed by the author as of left hand post LEFT EXTENSOR INDICIS 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 LONGUS TENDON TRANSFER on 06/19/2021 Goals (unrecognized section and content) Goals may be documented in a n alternate sectionGoals may be documented in an alternate sectionGoals may be documented in an alternate sectionGoals may be documented in an alternate sectionGoals may be documented in an alternate sectionGoals may be documented in an alternate sectionGoals may be documented in an alternate sectionGoals may be documented in an alternate sectionGoals may be documented in an alternate sectionGoals may be documented in an alternate sectionGoals may be documented in an alternate sectionGoals may be documented in an alternate sectionGoals may be documented in an alternate section Care Teams (unrecognized sec tion and content) Team Status: Active Member Role Status Dates Lorie Woodruff BEEF KILLER, BEEF KILLER-C Family Provider Active Lorie Woodruff BEEF KILLER, BEEF KILLER-C Primary Care Provider Active Team Status: Inactive Member Role Status Dates Lorie Woodruff BEEF KILLER, BEEF KILLER-C Primary Care Provider Active Dr. Augusto Mcnamara DO Attending Provider Active Dr. Brandyn Schroeder MD Referring Provider Active Team Status: Inactive Member Role Status Dates Lorie Woodruff BEEF KILLER, BEEF KILLER-C Primary Care Pr ovider, Attending Provider, Referring Provider Active Team Status: Inactive Member Role Status Dates Lorie Woodruff NP, BEEF KILLER-C Primary Care Provider Active Dr. Brandyn Schroeder MD Attending Provider Active Team Status: Inactive Member Role Status Dates Lorie Woodruff NP, BEEF KILLER-C Primary Care Provider, Attend ing Provider Active Team Status: Inactive Member Role Status Dates Lorie Woodruff NP, BEEF KILLER-C Primary Care Provider Active Dr. Brandyn Schroeder MD Attending Provider, Referr ing Provider Active Team Status: Inactive Member Role Status Dates Lorie Woodruff NP, BEEF KILLER-C Primary Care Provider Active Dr. Tonny Mohan DO Emergency Provider Active Team Status: Inactive Member Role Status Dates Lorie Woodruff NP, BEEF KILLER-C Primary Care Provider Active Dr. Tonny Mohan DO Attending Provider, Emergency Pr ovider Active Team Status: Inactive Member Role Status Dates Lorie Woodruff BEEF KILLER, BEEF KILLER-C Primary Care Provider Active Start: June 18, 2024 End: June 18, 2024 Lorie Woodruff NP, BEEF KILLER-C Attending Provider Active Start: June 18, 2024 End: June 18, 2024 Lorie Woodruff BEEF KILLER, BEEF KILLER-C Referring Provider Active Start: June 18, 2024 End: June 18, 2024 Team Status: Inactive Member Role Status Dates Lorie Woodruff BEEF KILLER, BEEF KILLER-C Primary Care Provider Active Start: October 12, 2024 End: October 12, 2024 Lorie Woodruff BEEF KILLER, BEEF KILLER-C Attending Provider Active Start: October 12, 2024 End: October 12, 2024 Lorie Woodruff BEEF KILLER, BEEF KILLER-C Referring Provider Active Start: October 12, 2024 End: October 12, 2024 Team Status: Inactive Member Role Status Dates Lorie Woodruff BEEF KILLER, BEEF KILLER-C Primary Care Provider Active Start: October 12, 2024 End: October 12, 2024 Lorie Woodruff BEEF KILLER, BEEF KILLER-C Attending Provider Active Start: October 12, 2024 End: October 12, 2024 Team Status: Active Member Role/Relationship Status Dates Lorie Woodruff BEEF KILLER, BEEF KILLER-C Family Provider Active Lorie Woodruff BEEF KILLER, BEEF KILLER-C Primary Care Provider Active Team Status: Inactive Member Role/Relationship Status Dates Lorie Woodruff BEEF KILLER, BEEF KILLER-C Primary Care Provider Active Start: October 12, 2024 End: October 12, 2024 Lorie Woodruff BEEF KILLER, BEEF KILLER-C Attending Provider Active Start: October 12, 2024 End: October 12, 2024 Lorie Woodruff BEEF KILLER, BEEF KILLER-C Referring Provider Active Start: October 12, 2024 End: October 12, 2024 Team Status: Inactive Member Role/Relationship Status Dates Lorie Woodruff BEEF KILLER, BEEF KILLER-C Primary Care Provider Active Start: October 12, 2024 End: October 12, 2024 Lorie Woodruff BEEF KILLER, BEEF KILLER-C Attending Provider Active Start: October 12, 2024 End: October 12, 2024 Team Status: Inactive Member Role/Relationship Status Dates Lorie Woodruff BEEF KILLER, BEEF KILLER-C Primary Care Provider Active Start: December 30, 2024 End: December 30, 2024 Lorie Woodruff BEEF KILLER, BEEF KILLER-C Attending Provider Active Start: December 30, 2024 End: December 30, 2024 Lorie Woodruff BEEF KILLER, BEEF KILLER-C Referring Provider Active Start: December 30, 2024 End: December 30, 2024 Team Status: Inactive Member Role/Relationship Status Dates Lorie Woodruff BEEF KILLER, BEEF KILLER-C Primary Care Provider Active Start: December 30, 2024 End: December 30, 2024 Lorie Woodruff BEEF KILLER, BEEF KILLER-C Attending Provider Active Start: December 30, 2024 End: December 30, 2024 (unrecognized sect ion and content) No Status Records Found INFORMATION SOURCE (unrecogn ized section and content) DATE CREATED AUTHOR 01/12/2025 [facility] FOR RECORDS PERTAINING TO PATIENTS WHO ARE OR HAVE BEEN ENROLLED IN A CHEMICAL DEPENDENCY/SUBSTANCEABUSE PROGRAM, SOME INFORMATION MAY BE OMITTED. This clinical summary was aggregated from multiple sources. Caution should be exercised in using it in the provision of clinical care. This summary normalizes information from multiple sources, and as a consequence, information in this document may materially change the coding, format and clinical context of patient data. In addition, data may be omitted in some cases. CLINICAL DECISIONS SHOULD BE BASED ON THE PRIMARY CLINICAL RECORDS. [employer] [facility]. provides no warranty or guarantee of the accuracy or completeness of information in this document.
--- OUTSIDE RECORDS SUMMARY | 2025-04-18 21:41 | XMS RPT_ITS | CCD ---
Author Organization [facility] Care Team Providers Care Pick Up Attendant Name Role Phone Jannet Singh PA-C Unavailable Woodruff CREDIT COLLECTIONS CLERK, CREDIT COLLECTIONS CLERK-C Lorie Primary Care Provider Dr. Augusto Mcnamara Attending Provider Dr. Brandyn Schroeder Referring Provider Woodruff CREDIT COLLECTIONS CLERK-C, Lorie Primary Care Provider [phone] Woodruff CREDIT COLLECTIONS CLERK-C, Lorie Attending Provider Woodruff CREDIT COLLECTIONS CLERK-C, Lorie Referring Provider Woodruff CREDIT COLLECTIONS CLERK-C, Lorie Primary Care Provider [phone] Woodruff CREDIT COLLECTIONS CLERK-C, Lorie Attending Provider [phone] Woodruff CREDIT COLLECTIONS CLERK-C, Lorie Referring Provider Woodruff CREDIT COLLECTIONS CLERK, Lorie Attending Unavailable Woodruff CREDIT COLLECTIONS CLERK, Lorie Primary Care Unavailable Woodruff CREDIT COLLECTIONS CLERK, Lorie Attending Unavailable Woodruff CREDIT COLLECTIONS CLERK, Lorie Primary Care Unavailable Woodruff CREDIT COLLECTIONS CLERK, Lorie Referring Unavailable Woodruff CREDIT COLLECTIONS CLERK, Lorie Attending Unavailable Woodruff CREDIT COLLECTIONS CLERK, Lorie Primary Care Unavailable Woodruff CREDIT COLLECTIONS CLERK, Lorie Referring Unavailable Woodruff CREDIT COLLECTIONS CLERK, Lorie Attending Unavailable Woodruff CREDIT COLLECTIONS CLERK, Lorie Primary Care Unavailable Allergies Allergy Classification Reported Allergen(s) Allergy Type Date of Onset Reaction(s) Facility (12 sources) Sulfamethoxazole Drug Allergy 2 [facility] (12 sources) Trimethoprim Drug Allergy 2 [facility] (1 source) Sulfamethoxazole Drug Allergy 2 [facility] (1 source) Trimethoprim Drug Allergy 2 [facility] Medications Current Medications Medication Drug Class(es) [...] coronary artery; Translations: [Atherosclerotic heart disease of [place] coronary artery without angina pectoris] 08-17-2022 Chronic [...] 01-03-2025 PSA, FREE 0.47 ng/mL Normal N/A [facility] Comment on above: Result Comment: Liu MARTINEZ methodology. Performed By: #### L 3110.0500 #### [facility] [address] [place], [address] PSA, FREE % 10.2 Normal . [facility] Comment on above: Result Comment: The table [...] any other population of men. Performed at: [facility] [address], [place] [id number] Cotton Breeder: Shaq Roberson PhD, Phone: [phone] Performed By: #### L 3110.0500 #### [facility] [address] [place], [address] PSA, TOTAL ULTR 4.620 ng/mL Abnormal 0.000-4.000 [facility] Comment on above: Result Comment: Liu mazariegos ECLIA methodology. According to the [place] [employer], Serum PSA should decrease and [...] disease. Performed By: #### L 3110.0500 #### [facility] [address] [facility] [place], [address] Serum or plasma free prostat e specific antigen (PSA)/total PSA mass ratioOrdered By: Lorie Woodruff on 12-30-2024 Free PSA/Total PSA [Mass fraction] 10.2 % . [facility] Comment on above: The table below list [...] other population of men.Performed at: - [facility], [place] [id number] Director: Shaq Roberson PhD, Phone: [phone] PSA Total+%Freeon 10-14-2024 PSA, FREE 0.50 ng/mL Normal N/A [facility] Comment on above: Result Comment: Liu HIGGINBOTHAMIA methodology. Performed By: #### L 3110.0500 #### [facility] [address] [place], [place], [id number] (584) PSA, FREE % 12.1 Normal . [facility] Comment on above: Result Comment: The table [...] any other population of men. Performed at: [employer] [id number] Cotton Breeder: Shaq Roberson PhD, Phone: [phone] Performed By: #### L 3110.0500 #### [facility] [address] [place], [address] PSA, TOTAL ULTR 4.130 ng/mL Abnormal 0.000-4.000 [facility] Comment on above: Result Comment: Liu MARTINEZ methodology. According to the [place] [employer], Serum PSA should decrease and [...] disease. Performed By: #### L 3110.0500 #### [facility] [address] [place], [place], [id number] Free PSA/Total PSA [Mass fra ction]Ordered By: Lorie Woodruff on 10-12-2024 % Free Prostate Specific Ag Calc 12.1 % . [facility] Comment on above: The table below list [...] for any other population of men.Performed at: [employer] [id number] Director: Shaq Roberson PhD, Phone: [phone] Free prostate specific antig en (PSA) measurementOrdered By: Lorie Woodruff on 10-12-2024 Free Prostate Specific Antigen 0.50 ng/mL N/A [facility] Comment on above: [employer] ECLIA methodol ogy. PSA, totalOrdered By: Lorie lugo on 10-12-2024 Prostate Specific Ag, Ultra-Sensitv 4.130 ng/mL High 0.000-4.000 [facility] Comment on above: Darryl ECLIA methodol ogy.According to the [place] [employer], Serum PSAshould decrease and remain [...] PSA/Total PSA [Mass fraction] 12.1 % . [facility] Comment on above: The table below list [...] for any other population of men.Performed at: [employer] [id number] Director: Shaq Roberson PhD, Phone: [phone] PSA Total+%Freeon 06-21-2024 PSA, FREE 0.45 ng/mL Normal N/A [facility] Comment on above: Result Comment: Liu MARTINEZ methodology. Performed By: #### L 501.9940, L3110.0500 #### [facility] [address] [place], [address] PSA, FREE % 10.9 Normal . [facility] Comment on above: Result Comment: The table [...] any other population of men. Performed at: [facility] [address], [place] [id number] Cotton Breeder: Shaq Roberson PhD, Phone: [phone] Performed By: #### L 501.9940, L3110.0500 #### [facility] [address] [place], [address] PSA, TOTAL ULTR 4.110 ng/mL Abnormal 0.000-4.000 [facility] Comment on above: Result Comment: Liu mazariegos ECLDARWIN methodology. According to the [place] [employer], Serum PSA should decrease and [...] Performed By: #### L 501.9940, L3110.0500 #### [facility] [address] [place], [address] Diagnostic total prostate sp ecific antigen (PSA) measurementOrdered By: Lorie Woodruff on 06-18-2024 Prostate Specific Antigen Total 4.51 ng/mL High 0.0-4.0 [facility] Comment on above: This test was perfor med using the TPSA assay method for [employer] chemistry system. Values obtained with differentassay methods cannot be used interchangably.When changing PSA assays in the course of monitoring apatient, additional sequential testing should be carriedout to confirm baseline values. Free PSA/Total PSA [Mass fra ction]Ordered By: Lorie Woodruff on 06-18-2024 % Free Prostate Specific Ag Calc 10.9 % . [facility] Comment on above: The table below list [...] for any other population of men.Performed at: [employer] [facility] [id number] Director: Shaq Roberson PhD, Phone: [phone] Free prostate specific antig en (PSA) measurementOrdered By: Lorie Woodruff on 06-18-2024 Free Prostate Specific Antigen 0.45 ng/mL N/A [facility] Comment on above: Darryl ECLIA methodol ogy. PSA, totalOrdered By: Lorie lugo on 06-18-2024 Prostate Specific Ag, Ultra-Sensitv 4.110 ng/mL High 0.000-4.000 [facility] Comment on above: Darryl ECLIA methodol ogy.According to the [place] [employer], Serum PSAshould decrease and remain [...] 05-31 PSA, DIAGNOSTIC 4.51 ng/mL High 0.0-4.0 [facility] Comment on above: Result Comment: This test was performed using the TPSA assay method for the [employer] chemistry system. Values obtained with different assay methods cannot be used interchangably. When changing PSA assays in the course of monitoring a patient, additional sequential testing should be carried out to confirm baseline values. Performed By: #### L 501.9940, L3110.0500 #### [facility] [address] [place], [place], [id number] Comprehensive Metabolic [facility] ilon 04-05-2024 Albumin [Mass/Vol] 3.8 g/dL Normal 3.2-5.0 [facility] Comment on above: Performed By: #### L 500.4100, L503.0105, L500.4050, L501.9940 #### [facility] [address] [place], [address] Albumin/Globulin [Mass ratio] 1.2 {ratio} Normal 0.9-2.4 [facility] Comment on above: Performed By: #### L 500.4100, L503.0105, L500.4050, L501.9940 #### [facility] [address] [place], [address] ALK P 67 U/L Normal 45-117 [facility] Comment on above: Performed By: #### L 500.4100, L503.0105, L500.4050, L501.9940 #### [facility] [address] [place], [address] ALT [Catalytic activity/Vol] 39 U/L Normal 16-61 [facility] Comment on above: Performed By: #### L 500.4100, L503.0105, L500.4050, L501.9940 #### [facility] [address] [place], [address] AST [Catalytic activity/Vol] 27 U/L Normal 15-37 [facility] Comment on above: Performed By: #### L 500.4100, L503.0105, L500.4050, L501.9940 #### [facility] [address] [place], [address] Bilirubin [Mass/Vol] 0.60 mg/dL Normal 0.20-1.00 [facility] Comment on above: Result Comment: For patients on eltrombopag therapy, use of Dimension [place] TBIL is not recommended. Performed By: #### L 500.4100, L503.0105, L500.4050, L501.9940 #### [facility] [address] [place], [address] BUN/CRE 12.7 RATIO Normal 10-20 [facility] Comment on above: Performed By: #### L 500.4100, L503.0105, L500.4050, L501.9940 #### [facility] [address] [place], [address] CA,Total 9.2 mg/dL Normal 8.5-10.1 [facility] Comment on above: Performed By: #### L 500.4100, L503.0105, L500.4050, L501.9940 #### [facility] [address] [place], [address] Chloride [Moles/Vol] 103 mmol/L Normal 98-107 [facility] Comment on above: Performed By: #### L 500.4100, L503.0105, L500.4050, L501.9940 #### [facility] [address] [place], [address] CO2 [Moles/Vol] 27.0 mmol/L Normal 21.0-32.0 [facility] Comment on above: Performed By: #### L 500.4100, L503.0105, L500.4050, L501.9940 #### [facility] [address] [place], [address] Creatinine [Mass/Vol] 1.18 mg/dL Normal 0.70-1.30 [facility] Comment on above: Result Comment: The validity of the calculated GFR GFRAA in patients over 70 years has not been determined. Clinical correlation is essential. Performed By: #### L 500.4100, L503.0105, L500.4050, L501.9940 #### [facility] [address] [place], [address] EST GFR - AA 79 mL/min Normal >60 [facility] Comment on above: Result Comment: Afri can [place] GFR Calc Performed By: #### L 500.4100, L503.0105, L500.4050, L501.9940 #### [facility] [address] [place], [address] GAP 7 Normal 5-15 [facility] Comment on above: Performed By: #### L 500.4100, L503.0105, L500.4050, L501.9940 #### [facility] [address] [place], [address] GFR/1.73 sq M.predicted among non-blacks MDRD (S/P/Bld) [Vol rate/Area] 65 mL/min/{1.73_m2} Normal >60 [facility] Comment on above: Result Comment: Non- GFR Calc Performed By: #### L 500.4100, L503.0105, L500.4050, L501.9940 #### [facility] [address] [place], [address] Globulin (S) [Mass/Vol] 3.1 g/dL Normal 2.2-4.2 [facility] Comment on above: Performed By: #### L 500.4100, L503.0105, L500.4050, L501.9940 #### [facility] [address] [place], [address] Glucose [Mass/Vol] 147 mg/dL High 74-106 [facility] Comment on above: Result Comment: Fast ing Glucose result greater than or equal to 126 mg/dL suggests DIABETES MELLITUS per A.D.A. criteria. Performed By: #### L 500.4100, L503.0105, L500.4050, L501.9940 #### [facility] [address] [place], [address] Potassium [Moles/Vol] 4.3 mmol/L Normal 3.5-5.1 [facility] Comment on above: Performed By: #### L 500.4100, L503.0105, L500.4050, L501.9940 #### [facility] [address] [place], [address] Sodium [Moles/Vol] 137 mmol/L Normal 136-145 [facility] Comment on above: Performed By: #### L 500.4100, L503.0105, L500.4050, L501.9940 #### [facility] [address] [place], [address] T PROT 6.9 g/dL Normal 6.4-8.2 [facility] Comment on above: Performed By: #### L 500.4100, L503.0105, L500.4050, L501.9940 #### [facility] [address] [place], [address] Urea nitrogen [Mass/Vol] 15 mg/dL Normal 7-18 [facility] Comment on above: Performed By: #### L 500.4100, L503.0105, L500.4050, L501.9940 #### [facility] [address] [place], [address] Lipid Profileon 04-05-2024 Cholesterol [Mass/Vol] 185 mg/dL Normal 200 [facility] Comment on above: Result Comment: <200 mg/dL Desirable 200-240 mg/dL Borderline >240 mg/dL High Risk Performed By: #### L 500.4100, L503.0105, L500.4050, L501.9940 #### [facility] [address] [place], [address] Cholesterol in HDL [Mass/Vol] 65 mg/dL Normal [facility] Comment on above: Result Comment: The drugs N-Acetylcysteine and Metamizole may falsely depress this assay. Reference Range HDL <40 mg/dL Low HDL Cholesterol HDL >or= 60 mg/dL High HDL Cholesterol Performed By: #### L 500.4100, L503.0105, L500.4050, L501.9940 #### [facility] [address] [place], [address] Cholesterol in LDL [Mass/Vol] 94 mg/dL Normal 0-130 [facility] Comment on above: Performed By: #### L 500.4100, L503.0105, L500.4050, L501.9940 #### [facility] [address] [place], [address] Cholesterol in VLDL [Mass/Vol] 26 mg/dL Normal 5-40 [facility] Comment on above: Performed By: #### L 500.4100, L503.0105, L500.4050, L501.9940 #### [facility] [address] [place], [address] Triglyceride [Mass/Vol] 132 mg/dL Normal [facility] Comment on above: Result Comment: The drugs N-Acetylcysteine and Metamizole may falsely depress this assay. Serum Triglycerides Reference Interval Normal <150 mg/dL Borderline high 150 - 199 mg/dL High 200 - 499 mg/dL Very High > or = 500 mg/dL Performed By: #### L 500.4100, L503.0105, L500.4050, L501.9940 #### [facility] [address] [place], [address] PSA,Total- Diagnosticon 10-0 PSA, DIAGNOSTIC 4.97 ng/mL High 0.0-4.0 [facility] Comment on above: Result Comment: This test was performed using the TPSA assay method for the [employer] chemistry system. Values obtained with different assay methods cannot be used interchangably. When changing PSA assays in the course of monitoring a patient, additional sequential testing should be carried out to confirm baseline values. Performed By: #### L 500.4100, L503.0105, L500.4050, L501.9940 #### [facility] [address] [place], [address] Vitamin B12on 04-05-2024 Cobalamin (Vitamin B12) [Mass/Vol] 346 pg/mL Normal 211-911 [facility] Comment on above: Performed By: #### L 500.4100, L503.0105, L500.4050, L501.9940 #### [facility] [address] [place], [address] Basophil percentageOrdered B y: Lorie Woodruff on 09-18-2023 Basophil percentage 4.75 ng/mL 0.0-4.0 [facility] Comment on above: This test was perfor med using the TPSA assay method for the[employer] chemistry system. Values obtained with differentassay methods cannot be used interchangably.When changing PSA assays in the course of monitoring apatient, additional sequential testing should be carriedout to confirm baseline values. No Panel InformationOrdered By: Lorie Woodruff on 06-17-2023 Percent Free Prostate Specific Ag 0.58 ng/mL N/A [facility] Comment on above: [employer] ECLIA methodol ogy. Prostate Specific Ag, Ultra-Sensitv 4.460 ng/mL 0.000-4.000 [facility] Comment on above: [employer] ECLIA methodol ogy.According to the [place] [employer], Serum PSAshould decrease and remain [...] PSA/Total PSA [Mass fraction] 13.0 % . [facility] Comment on above: The table below list [...] for any other population of men.Performed at: [employer] [id number] Director: Shaq Roberson PhD, Phone: [phone] Absolute lymphocyte countOrd ered By: Lorie Woodruff on 12-10-2022 Lymphocytes Auto (Unsp spec) [#/Vol] 2.44 10*3/uL 0.83-4.51 [facility] Basophil percentageOrdered B y: Lorie Woodruff on 12-10-2022 Basophils/100 WBC (Bld) 0.8 % 0-1 [facility] Bilirubin [Mass/Vol] 0.30 mg/dL 0.20-1.00 [facility] Comment on above: For patients on eltr ombopag therapy, use of Dimension [place] TBIL is not recommended. Chloride [Moles/Vol] 106 mmol/L 98-107 [facility] Cholesterol [Mass/Vol] 199 mg/dL <200 [facility] Comment on above: <200 mg/dL Desirable 200-240 mg/dL Borderline >240 mg/dL High Risk Eosinophils/100 WBC (Bld) 3.5 % 0-5 [facility] Glucose [Mass/Vol] 93 mg/dL 74-106 [facility] Neutrophils (Bld) [#/Vol] 3.9 10*3/uL 2.0-7.7 [facility] Neutrophils/100 WBC (Bld) 50.3 % 47-70 [facility] Potassium [Moles/Vol] 4.4 mmol/L 3.5-5.1 [facility] Protein [Mass/Vol] 7.2 g/dL 6.4-8.2 [facility] Sodium [Moles/Vol] 139 mmol/L 136-145 [facility] Triglyceride [Mass/Vol] 289 mg/dL <199 [facility] Comment on above: The drugs N-Acetylcy steine and Metamizole may falsely depress this assay.Serum Triglycerides Reference Interval Normal <150 mg/dL Borderline high 150 - 199 mg/dL High 200 - 499 mg/dL Very High > or = 500 mg/dL WBC (Bld) [#/Vol] 7.7 10*3/uL 4.4-11.0 [facility] Blood erythrocytes count (nu mber/volume)Ordered By: Lorie Woodruff on 12-10-2022 RBC (Bld) [#/Vol] 4.61 10*6/uL 4.6-6.2 [facility] Blood hemoglobin measurement (mass/volume)Ordered By: Lorie Woodruff on 12-10-2022 Hemoglobin (Bld) [Mass/Vol] 15.1 g/dL 13.0-16.5 [facility] Blood lymphocytes/100 leukoc ytesOrdered By: Lorie Woodruff on 12-10-2022 Lymphocytes/100 WBC (Bld) 31.5 % 19-41 [facility] Blood monocytes/100 leukocyt esOrdered By: Lorie Woodruff on 12-10-2022 Monocytes/100 WBC (Bld) 13.6 % 0-10 [facility] Blood platelet mean volumeOr dered By: Lorie Woodruff on 12-10-2022 Platelet mean volume (Bld) [Entitic vol] 11.9 fL 6.2-12.0 [facility] Determination of erythrocyte mean corpuscular volume (MCV)Ordered By: Lorie Woodruff on 12-10-2022 MCV (RBC) [Entitic vol] 99.3 fL 80-94 [facility] Hematocrit Auto (Bld) [Volum e fraction]Ordered By: Lorie Woodruff on 12-10-2022 Hematocrit (Bld) [Volume fraction] 45.8 % 40-54 [facility] - Chemistry and C hemistry - challengeOrdered By: Lorie Woodruff on 12-10-2022 ALP [Catalytic activity/Vol] 70 U/L 45-117 [facility] ALT [Catalytic activity/Vol] 46 U/L 16-61 [facility] CO2 [Moles/Vol] 27.0 mmol/L 21.0-32.0 [facility] Globulin (S) [Mass/Vol] 3.6 g/dL 2.2-4.2 [facility] Urea nitrogen/Creatinine [Mass ratio] 18.6 mg/mg 10-20 [facility] - Hematology and Cell countsOrdered By: Lorie Woodruff on 12-10-2022 Erythrocyte distribution width (RBC) [Entitic vol] 47.8 fL 35.1-43.9 [facility] Erythrocyte distribution width (RBC) [Ratio] 13.0 % 11.6-14.6 [facility] Immature granulocytes/100 WBC (Bld) 0.300 % 0.0-0.9 [facility] Comment on above: IG% - Immature Granu locytes (promyelocytes, myelocytes and metamyelocytes) > 1% indicates that a LEFT SHIFT is Present. MCH (RBC) [Entitic mass] 32.8 pg 27.0-32.0 [facility] Nucleated RBC/100 WBC (Bld) [Ratio] 0 % 0-5 [facility] MCHC Auto (RBC) [Mass/Vol]Or dered By: Lorie Woodruff on 12-10-2022 MCHC (RBC) [Mass/Vol] 33.0 g/dL 32-36 [facility] No Panel InformationOrdered By: Lorie Woodruff on 12-10-2022 Estimated GFR (MDRD) Amer 100 mL/min >60 [facility] Comment on above: GFR Calc Estimated GFR (MDRD) Non-Af Amer 82 mL/min >60 [facility] Comment on above: Non- GFR Calc Prostate Specific Antigen Total 3.96 ng/mL 0.0-4.0 [facility] Comment on above: This test was perfor med using the TPSA assay method for the[employer] chemistry system. Values obtained with differentassay methods cannot be used interchangably.When changing PSA assays in the course of monitoring apatient, additional sequential testing should be carriedout to confirm baseline values. Platelets bldOrdered By: Mike Woodruff on 12-10-2022 Platelets (Bld) [#/Vol] 246 10*3/uL 150-450 [facility] Serum or plasma albumin иван urement (mass/volume)Ordered By: Lorie Woodruff on 12-10-2022 Albumin [Mass/Vol] 3.6 g/dL 3.2-5.0 [facility] Serum or plasma albumin/glob ulin mass ratioOrdered By: Lorie Woodruff on 12-10-2022 Albumin/Globulin [Mass ratio] 1.0 {ratio} 0.9-2.4 [facility] Serum or plasma calcium иван urement (mass/volume)Ordered By: Lorie Woodruff on 12-10-2022 Calcium [Mass/Vol] 9.0 mg/dL 8.5-10.1 [facility] Serum or plasma cholesterol in HDL measurement (mass/volume)Ordered By: Lorie Woodruff on 12-10-2022 Cholesterol in HDL [Mass/Vol] 59 mg/dL >40 [facility] Comment on above: The drugs N-Acetylcy steine and Metamizole may falsely depress this assay. Reference Range HDL <40 mg/dL Low HDL Cholesterol HDL >or= 60 mg/dL High HDL Cholesterol Serum or plasma cholesterol in VLDL measurement (mass/volume)Ordered By: Lorie Woodruff on 12-10-2022 Cholesterol in VLDL [Mass/Vol] 58 mg/dL 5-40 [facility] Serum or plasma creatinine m easurement (mass/volume)Ordered By: Lorie Woodruff on 12-10-2022 Creatinine [Mass/Vol] 0.97 mg/dL 0.70-1.30 [facility] Comment on above: The validity of the calculated GFR & GFRAA in patients over 70 years has not been determined. Clinical correlation is essential. Serum or plasma low density lipoprotein (LDL) cholesterol measurement (mass/volume)Ordered By: Lorie Woodruff on 12-10-2022 Cholesterol in LDL [Mass/Vol] 82 mg/dL 0-130 [facility] Serum or plasma urea nitroge n measurement (mass/volume)Ordered By: Lorie Woodruff on 12-10-2022 Urea nitrogen [Mass/Vol] 18 mg/dL 7-18 [facility] Thin prep Papanicolaou smear with manual screeningOrdered By: Lorie Woodruff on 12-10-2022 Thin prep Papanicolaou smear with manual screening 26 U/L 15-37 [facility] Thin prep Papanicolaou smear with manual screening 6 5-15 [facility] No Panel InformationOrdered By: Lorie Woodruff on 09-18-2022 Percent Free Prostate Specific Ag 0.40 ng/mL N/A [facility] Comment on above: Darryl ECLIA methodol ogy. Prostate Specific Ag, Ultra-Sensitv 2.860 ng/mL 0.000-4.000 [facility] Comment on above: Darryl ECLIA methodol ogy.According to the [place] [employer], Serum PSAshould decrease and remain [...] Prostate Specific Antigen Total 3.45 ng/mL 0.0-4.0 [facility] Comment on above: This test was perfor med using the TPSA assay method for [employer] chemistry system. Values obtained with differentassay methods cannot be used interchangably.When changing PSA assays in the course of monitoring apatient, additional sequential testing should be carriedout to confirm baseline values. Serum or plasma free prostat e specific antigen/total prostate specific antigen ratioOrdered By: Lorie Woodruff on 09-18-2022 Free PSA/Total PSA [Mass fraction] 14.0 % . [facility] Comment on above: The table below list [...] for any other population of men.Performed at: [address] [id number] Director: Shaq Roberson PhD, Phone: [phone] No Panel InformationOrdered By: Tonny Mohan on 08-17-2022 Troponin I High Sensitivity 7 pg/mL 3.0-78.0 [facility] Comment on above: Please Note: New Eyni t Units and Gender Specific Reference Ranges. For more information see Policy Stat Procedure [place] High Sensitivity Troponin (TNIH) and attachments. Absolute lymphocyte countOrd ered By: Tonny Mohan on 08-16-2022 Lymphocytes Auto (Unsp spec) [#/Vol] 2.24 10*3/uL 0.83-4.51 [facility] Basophil percentageOrdered B y: Tonny Mohan on 08-16-2022 Basophils/100 WBC (Bld) 1.2 % 0-1 [facility] Chloride [Moles/Vol] 108 mmol/L 98-107 [facility] Eosinophils/100 WBC (Bld) 6.7 % 0-5 [facility] Glucose [Mass/Vol] 132 mg/dL 74-106 [facility] Comment on above: Fasting Glucose resu lt greater than or equal to 126 mg/dL suggests DIABETES MELLITUS per A.D.A. criteria. Neutrophils (Bld) [#/Vol] 2.8 10*3/uL 2.0-7.7 [facility] Neutrophils/100 WBC (Bld) 39.0 % 47-70 [facility] Potassium [Moles/Vol] 3.9 mmol/L 3.5-5.1 [facility] Sodium [Moles/Vol] 141 mmol/L 136-145 [facility] WBC (Bld) [#/Vol] 7.3 10*3/uL 4.4-11.0 [facility] Blood erythrocytes count (nu mber/volume)Ordered By: Tonny Mohan on 08-16-2022 RBC (Bld) [#/Vol] 4.56 10*6/uL 4.6-6.2 [facility] Blood hemoglobin measurement (mass/volume)Ordered By: Tonny Mohan on 08-16-2022 Hemoglobin (Bld) [Mass/Vol] 14.8 g/dL 13.0-16.5 [facility] Blood lymphocytes/100 leukoc ytesOrdered By: Tonny Mohan on 08-16-2022 Lymphocytes/100 WBC (Bld) 30.8 % 19-41 [facility] Blood manual differential co mment interpretation (narrative result)Ordered By: Tonny Mohan on 08-16-2022 Manual differential comment Tommy (Bld) [Interp] SCANNED [facility] Comment on above: MONOCYTOSIS NOTED Blood monocytes/100 leukocyt esOrdered By: Tonny Mohan on 08-16-2022 Monocytes/100 WBC (Bld) 22.0 % 0-10 [facility] Blood platelet mean volumeOr dered By: Tonny Mohan on 08-16-2022 Platelet mean volume (Bld) [Entitic vol] 11.4 fL 6.2-12.0 [facility] Determination of erythrocyte mean corpuscular volume (MCV)Ordered By: Tonny Mohan on 08-16-2022 MCV (RBC) [Entitic vol] 96.3 fL 80-94 [facility] Hematocrit Auto (Bld) [Volum e fraction]Ordered By: Tonny Mohan on 08-16-2022 Hematocrit (Bld) [Volume fraction] 43.9 % 40-54 [facility] Laboratory - Chemistry and C hemistry - challengeOrdered By: Tonny Mohan on 08-16-2022 CO2 [Moles/Vol] 23.0 mmol/L 21.0-32.0 [facility] Magnesium [Mass/Vol] 2.2 mg/dL 1.6-2.6 [facility] Urea nitrogen/Creatinine [Mass ratio] 19.3 mg/mg 10-20 [facility] Laboratory - Hematology and Cell countsOrdered By: Tonny Mohan on 08-16-2022 Erythrocyte distribution width (RBC) [Entitic vol] 47.0 fL 35.1-43.9 [facility] Erythrocyte distribution width (RBC) [Ratio] 13.2 % 11.6-14.6 [facility] Immature granulocytes/100 WBC (Bld) 0.300 % 0.0-0.9 [facility] Comment on above: IG% - Immature Granu locytes (promyelocytes, myelocytes and metamyelocytes) > 1% indicates that a LEFT SHIFT is Present. MCH (RBC) [Entitic mass] 32.5 pg 27.0-32.0 [facility] Nucleated RBC/100 WBC (Bld) [Ratio] 0 % 0-5 [facility] MCHC Auto (RBC) [Mass/Vol]Or dered By: Tonny Mohan on 08-16-2022 MCHC (RBC) [Mass/Vol] 33.7 g/dL 32-36 [facility] No Panel InformationOrdered By: Tonny Mohan on 08-16-2022 D-Dimer Quantitative (PE/DVT) 0.58 FEU/ug/m 0.27-0.49 [facility] Comment on above: D-Dimer ELEVATED (>0 .49): Additional studies and clinicalassessments are indicated to conclude diagnosis of:Deep Vein Thrombosis (DVT) or Pulmonary Embolism (PE)CRITICAL VALUE VERIFIED. CALLED TO Jennifer SHAY RN ER08/17/22 0035 [place].RESULTS READ BACK BY SAME. Estimated Creatinine Clearance Calc 79.23 ml/min [facility] Estimated GFR (MDRD) Amer 98 mL/min >60 [facility] Comment on above: GFR Calc Estimated GFR (MDRD) Non-Af Amer 81 mL/min >60 [facility] Comment on above: Non- GFR Calc Platelets bldOrdered By: Kodak Mohan on 08-16-2022 Platelets (Bld) [#/Vol] 251 10*3/uL 150-450 [facility] Serum or plasma calcium иван urement (mass/volume)Ordered By: Tonny Mohan on 08-16-2022 Calcium [Mass/Vol] 8.9 mg/dL 8.5-10.1 [facility] Serum or plasma creatinine m easurement (mass/volume)Ordered By: Tonny Mohan on 08-16-2022 Creatinine [Mass/Vol] 0.99 mg/dL 0.70-1.30 [facility] Comment on above: The validity of the calculated GFR & GFRAA in patients over 70 years has not been determined. Clinical correlation is essential. Serum or plasma urea nitroge n measurement (mass/volume)Ordered By: Tonny Mohan on 08-16-2022 Urea nitrogen [Mass/Vol] 19 mg/dL 7-18 [facility] Thin prep Papanicolaou smear with manual screeningOrdered By: Tonny Mohan on 08-16-2022 Thin prep Papanicolaou smear with manual screening 10 5-15 [facility] Absolute lymphocyte countOrd ered By: Lorie Woodruff on 04-22-2022 Lymphocytes Auto (Unsp spec) [#/Vol] 2.28 10*3/uL 0.83-4.51 [facility] Basophil percentageOrdered B y: Lorie Woodruff on 04-22-2022 Basophils/100 WBC (Bld) 0.9 % 0-1 [facility] Bilirubin [Mass/Vol] 0.70 mg/dL 0.20-1.00 [facility] Comment on above: For patients on eltr ombopag therapy, use of Dimension [place] TBIL is not recommended. Chloride [Moles/Vol] 105 mmol/L 98-107 [facility] Eosinophils/100 WBC (Bld) 2.8 % 0-5 [facility] Glucose [Mass/Vol] 158 mg/dL 74-106 [facility] Comment on above: Fasting Glucose resu lt greater than or equal to 126 mg/dL suggests DIABETES MELLITUS per A.D.A. criteria. Neutrophils (Bld) [#/Vol] 5.8 10*3/uL 2.0-7.7 [facility] Neutrophils/100 WBC (Bld) 60.0 % 47-70 [facility] Potassium [Moles/Vol] 4.5 mmol/L 3.5-5.1 [facility] Protein [Mass/Vol] 7.4 g/dL 6.4-8.2 [facility] Sodium [Moles/Vol] 137 mmol/L 136-145 [facility] WBC (Bld) [#/Vol] 9.7 10*3/uL 4.4-11.0 [facility] Blood erythrocytes count (nu mber/volume)Ordered By: Lorie Woodruff on 04-22-2022 RBC (Bld) [#/Vol] 4.68 10*6/uL 4.6-6.2 [facility] Blood hemoglobin measurement (mass/volume)Ordered By: Lorie Woodruff on 04-22-2022 Hemoglobin (Bld) [Mass/Vol] 15.7 g/dL 13.0-16.5 [facility] Blood lymphocytes/100 leukoc ytesOrdered By: Lorie Woodruff on 04-22-2022 Lymphocytes/100 WBC (Bld) 23.5 % 19-41 [facility] Blood monocytes/100 leukocyt esOrdered By: Lorie Woodruff on 04-22-2022 Monocytes/100 WBC (Bld) 12.6 % 0-10 [facility] Blood platelet mean volumeOr dered By: Lorie Woodruff on 04-22-2022 Platelet mean volume (Bld) [Entitic vol] 11.6 fL 6.2-12.0 [facility] Determination of erythrocyte mean corpuscular volume (MCV)Ordered By: Lorie Woodruff on 04-22-2022 MCV (RBC) [Entitic vol] 97.9 fL 80-94 [facility] Hematocrit Auto (Bld) [Volum e fraction]Ordered By: Lorie Woodruff on 04-22-2022 Hematocrit (Bld) [Volume fraction] 45.8 % 40-54 [facility] Laboratory - Chemistry and C hemistry - challengeOrdered By: Lorie Woodruff on 04-22-2022 ALP [Catalytic activity/Vol] 71 U/L 45-117 [facility] ALT [Catalytic activity/Vol] 49 U/L 16-61 [facility] CO2 [Moles/Vol] 27.0 mmol/L 21.0-32.0 [facility] Globulin (S) [Mass/Vol] 3.4 g/dL 2.2-4.2 [facility] Urea nitrogen/Creatinine [Mass ratio] 13.5 mg/mg 10-20 [facility] Laboratory - Hematology and Cell countsOrdered By: Lorie Woodruff on 04-22-2022 Erythrocyte distribution width (RBC) [Entitic vol] 49.1 fL 35.1-43.9 [facility] Erythrocyte distribution width (RBC) [Ratio] 13.5 % 11.6-14.6 [facility] Immature granulocytes/100 WBC (Bld) 0.200 % 0.0-0.9 [facility] Comment on above: IG% - Immature Granu locytes (promyelocytes, myelocytes and metamyelocytes) > 1% indicates that a LEFT SHIFT is Present. MCH (RBC) [Entitic mass] 33.5 pg 27.0-32.0 [facility] Nucleated RBC/100 WBC (Bld) [Ratio] 0 % 0-5 [facility] MCHC Auto (RBC) [Mass/Vol]Or dered By: Lorie Woodruff on 04-22-2022 MCHC (RBC) [Mass/Vol] 34.3 g/dL 32-36 [facility] No Panel InformationOrdered By: Lorie Woodruff on 04-22-2022 Estimated GFR (MDRD) Amer 74 mL/min >60 [facility] Comment on above: GFR Calc Estimated GFR (MDRD) Non-Af Amer 61 mL/min >60 [facility] Comment on above: Non- GFR Calc Percent Free Prostate Specific Ag 0.46 ng/mL N/A [facility] Comment on above: Darryl ECLIA methodol ogy. Prostate Specific Ag, Ultra-Sensitv 3.200 ng/mL 0.000-4.000 [facility] Comment on above: Darryl ECLIA methodol ogy.According to the [place] [employer], Serum PSAshould decrease and remain [...] 04-22-2022 Platelets (Bld) [#/Vol] 284 10*3/uL 150-450 [facility] Serum or plasma albumin иван urement (mass/volume)Ordered By: Lorie Woodruff on 04-22-2022 Albumin [Mass/Vol] 4.0 g/dL 3.2-5.0 [facility] Serum or plasma albumin/glob ulin mass ratioOrdered By: Lorie Woodruff on 04-22-2022 Albumin/Globulin [Mass ratio] 1.2 {ratio} 0.9-2.4 [facility] Serum or plasma calcium иван urement (mass/volume)Ordered By: Lorie Woodruff on 04-22-2022 Calcium [Mass/Vol] 9.1 mg/dL 8.5-10.1 [facility] Serum or plasma creatinine m easurement (mass/volume)Ordered By: Lorie Woodruff on 04-22-2022 Creatinine [Mass/Vol] 1.26 mg/dL 0.70-1.30 [facility] Comment on above: The validity of the calculated GFR & GFRAA in patients over 70 years has not been determined. Clinical correlation is essential. Serum or plasma free prostat e specific antigen/total prostate specific antigen ratioOrdered By: Lorie Woodruff on 04-22-2022 Free PSA/Total PSA [Mass fraction] 14.4 % . [facility] Comment on above: The table below list [...] for any other population of men.Performed at: [employer] [id number] Director: Shaq Roberson PhD, Phone: [phone] Serum or plasma urea nitroge n measurement (mass/volume)Ordered By: Lorie Woodruff on 04-22-2022 Urea nitrogen [Mass/Vol] 17 mg/dL 7-18 [facility] Thin prep Papanicolaou smear with manual screeningOrdered By: Lorie Woodruff on 04-22-2022 Thin prep Papanicolaou smear with manual screening 32 U/L 15-37 [facility] Thin prep Papanicolaou smear with manual screening 5 5-15 [facility] No Panel Informationon 12-19 Percent Free Prostate Specific Ag 0.63 ng/mL N/A [facility] Work Phone: Comment on above: Darryl ECLIA methodol ogy. Prostate Specific Antigen Total 4.1 ng/mL 0.0-4.0 [facility] Work Phone: Comment on above: Darryl ECLIA methodol ogy.According to the [place] [employer], Serum PSAshould decrease and remain [...] PSA/Total PSA [Mass fraction] 15.4 % . [facility] Work Phone: Comment on above: The table [...] for any other population of men.Performed at: [employer] [id number] Director: Shaq Roberson PhD, Phone: [phone] Absolute lymphocyte counton 10-24-2021 Lymphocytes Auto (Unsp spec) [#/Vol] 2.60 10*3/uL 0.83-4.51 [facility] Work Phone: Basophil percentageon 2021 Basophils/100 WBC (Bld) 1.1 % 0-1 [facility] Work Phone: Bilirubin [Mass/Vol] 0.30 mg/dL 0.20-1.00 [facility] Work Phone: Comment on above: For patients on eltr ombopag therapy, use of Dimension [place] TBIL is not recommended. Chloride [Moles/Vol] 107 mmol/L 98-107 [facility] Work Phone: Cholesterol [Mass/Vol] 186 mg/dL <200 [facility] Work Phone: Comment on above: <200 mg/dL Desirable 200-240 mg/dL Borderline >240 mg/dL High Risk Eosinophils/100 WBC (Bld) 4.7 % 0-5 [facility] Work Phone: Glucose [Mass/Vol] 92 mg/dL 74-106 [facility] Work Phone: Neutrophils (Bld) [#/Vol] 4.7 10*3/uL 2.0-7.7 [facility] Work Phone: Neutrophils/100 WBC (Bld) 50.9 % 47-70 [facility] Work Phone: Potassium [Moles/Vol] 4.0 mmol/L 3.5-5.1 [facility] Work Phone: Protein [Mass/Vol] 6.8 g/dL 6.4-8.2 [facility] Work Phone: [phone] Sodium [Moles/Vol] 138 mmol/L 136-145 [facility] Work Phone: Triglyceride [Mass/Vol] 131 mg/dL [facility] Work Phone: Comment on above: The drugs N-Acetylcy steine and Metamizole may falsely depress this assay.Serum Triglycerides Reference Interval Normal <150 mg/dL Borderline high 150 - 199 mg/dL High 200 - 499 mg/dL Very High > or = 500 mg/dL WBC (Bld) [#/Vol] 9.2 10*3/uL 4.4-11.0 [facility] Work Phone: Blood erythrocytes count (nu mber/volume)on 10-24-2021 RBC (Bld) [#/Vol] 4.55 10*6/uL 4.6-6.2 [facility] Work Phone: Blood hemoglobin measurement (mass/volume)on 10-24-2021 Hemoglobin (Bld) [Mass/Vol] 14.7 g/dL 13.0-16.5 [facility] Work Phone: Blood lymphocytes/100 leukoc yteson 10-24-2021 Lymphocytes/100 WBC (Bld) 28.4 % 19-41 [facility] Work Phone: Blood monocytes/100 leukocyt eson 10-24-2021 Monocytes/100 WBC (Bld) 14.8 % 0-10 [facility] Work Phone: Blood platelet mean volumeon 10-24-2021 Platelet mean volume (Bld) [Entitic vol] 11.5 fL 6.2-12.0 [facility] Work Phone: Determination of erythrocyte mean corpuscular volume (MCV)on 10-24-2021 MCV (RBC) [Entitic vol] 94.9 fL 80-94 [facility] Work Phone: Hematocrit Auto (Bld) [Volum e fraction]on 10-24-2021 Hematocrit (Bld) [Volume fraction] 43.2 % 40-54 [facility] Work Phone: Laboratory - Chemistry and C hemistry - challengeon 10-24-2021 ALP [Catalytic activity/Vol] 64 U/L 45-117 [facility] Work Phone: ALT [Catalytic activity/Vol] 39 U/L 16-61 [facility] Work Phone: CO2 [Moles/Vol] 25.0 mmol/L 21.0-32.0 [facility] Work Phone: Globulin (S) [Mass/Vol] 3.3 g/dL 2.2-4.2 [facility] Work Phone: Urea nitrogen/Creatinine [Mass ratio] 21.5 mg/mg 10-20 [facility] Work Phone: Laboratory - Hematology and Cell countson 10-24-2021 Erythrocyte distribution width (RBC) [Entitic vol] 46.0 fL 35.1-43.9 [facility] Work Phone: Erythrocyte distribution width (RBC) [Ratio] 13.2 % 11.6-14.6 [facility] Work Phone: Immature granulocytes/100 WBC (Bld) 0.100 % 0.0-0.9 [facility] Work Phone: Comment on above: IG% - Immature Granu locytes (promyelocytes, myelocytes and metamyelocytes) > 1% indicates that a LEFT SHIFT is Present. MCH (RBC) [Entitic mass] 32.3 pg 27.0-32.0 [facility] Work Phone: Nucleated RBC/100 WBC (Bld) [Ratio] 0 % 0-5 [facility] Work Phone: MCHC Auto (RBC) [Mass/Vol]on 10-24-2021 MCHC (RBC) [Mass/Vol] 34.0 g/dL 32-36 [facility] Work Phone: No Panel Informationon 10-24 Estimated GFR (MDRD) Amer 99 mL/min >60 [facility] Work Phone: Comment on above: GFR Calc Estimated GFR (MDRD) Non-Af Amer 82 mL/min >60 [facility] Work Phone: Comment on above: Non- GFR Calc Prostate Specific Antigen Screen 4.56 ng/mL 0.00-4.00 [facility] Work Phone: Comment on above: This test was perfor med using the TPSA assay method for [employer] chemistry system. Values obtained with differentassay methods cannot be used interchangably.When changing PSA assays in the course of monitoring apatient, additional sequential testing should be carriedout to confirm baseline values. Platelets bldon 10-24-2021 Platelets (Bld) [#/Vol] 272 10*3/uL 150-450 [facility] Work Phone: Serum or plasma albumin иван urement (mass/volume)on 10-24-2021 Albumin [Mass/Vol] 3.5 g/dL 3.2-5.0 [facility] Work Phone: Serum or plasma albumin/glob ulin mass ratioon 10-24-2021 Albumin/Globulin [Mass ratio] 1.1 {ratio} 0.9-2.4 [facility] Work Phone: Serum or plasma calcium иван urement (mass/volume)on 10-24-2021 Calcium [Mass/Vol] 8.3 mg/dL 8.5-10.1 [facility] Work Phone: Serum or plasma cholesterol in HDL measurement (mass/volume)on 10-24-2021 Cholesterol in HDL [Mass/Vol] 64 mg/dL [facility] Work Phone: Comment on above: The drugs N-Acetylcy steine and Metamizole may falsely depress this assay. Reference Range HDL <40 mg/dL Low HDL Cholesterol HDL >or= 60 mg/dL High HDL Cholesterol Serum or plasma cholesterol in VLDL measurement (mass/volume)on 10-24-2021 Cholesterol in VLDL [Mass/Vol] 26 mg/dL 5-40 [facility] Work Phone: Serum or plasma creatinine m easurement (mass/volume)on 10-24-2021 Creatinine [Mass/Vol] 0.98 mg/dL 0.70-1.30 [facility] Work Phone: Comment on above: The validity of the calculated GFR & GFRAA in patients over 70 years has not been determined. Clinical correlation is essential. Serum or plasma low density lipoprotein (LDL) cholesterol measurement (mass/volume)on 10-24-2021 Cholesterol in LDL [Mass/Vol] 96 mg/dL 0-130 [facility] Work Phone: Serum or plasma urea nitroge n measurement (mass/volume)on 10-24-2021 Urea nitrogen [Mass/Vol] 21 mg/dL 7-18 [facility] Work Phone: Thin prep Papanicolaou smear with manual screeningon 10-24-2021 Thin prep Papanicolaou smear with manual screening 26 U/L 15-37 [facility] Work Phone: Thin prep Papanicolaou smear with manual screening 6 5-15 [facility] Work Phone: Clinical Summary: Tamela tomas 08-01-2021 number of previous outpatient psychiatric treatments [phone] [id number] OT Invalid Interpretation Code [facility] Work Phone: [id number] OP Hand Invalid Interpretation Code [facility] Work Phone: [id number] OP Hand Invalid Interpretation Code [facility] Work Phone: [facility] OP Visit Invalid Interpretation Code [facility] Work Phone: Vital Signs Date Time Vital Sign Value Performing Clinician Facility 12-30-2024 15:09-0400 Body height 180.34 cm Lorie Woodruff CREDIT COLLECTIONS CLERK-C Work Phone: [facility] 10-12-2024 16:21-0400 Body height 180.34 cm Lorie Woodruff CREDIT COLLECTIONS CLERK-C Work Phone: [facility] 09-18-2023 18:35-0400 Body height 180.34 cm [facility] 06-17-2023 15:21-0500 Body height 180.34 cm [facility] 12-10-2022 18:21-0400 Body height 180.34 cm [facility] 12-10-2022 18:21-0400 Body mass index (BMI) [Ratio] 26.7 kg/m2 [facility] 12-10-2022 18:21-0400 Body temperature 97.7 [degF] [facility] 12-10-2022 18:21-0400 Body weight 87.08 kg [facility] 12-10-2022 18:21-0400 Diastolic blood pressure 70 mm[Hg] [facility] 12-10-2022 18:21-0400 Heart rate 65 /min [facility] 12-10-2022 18:21-0400 Respiratory rate 18 /min [facility] 12-10-2022 18:21-0400 SaO2% (BldA) [Mass fraction] 99 % [facility] 12-10-2022 18:21-0400 Systolic blood pressure 122 mm[Hg] [facility] 09-18-2022 17:20-0400 Body height 180.34 cm [facility] 08-17-2022 03:27-0500 Diastolic blood pressure 86 mm[Hg] CREDIT COLLECTIONS CLERK-C Lorie Woodruff CREDIT COLLECTIONS CLERK Work Phone: [facility] 08-17-2022 03:27-0500 Heart rate 64 /min CREDIT COLLECTIONS CLERK-C Lorie Woodruff CREDIT COLLECTIONS CLERK Work Phone: [facility] 08-17-2022 03:27-0500 Respiratory rate 16 /min CREDIT COLLECTIONS CLERK-C Lorie Woodruff CREDIT COLLECTIONS CLERK Work Phone: [facility] 08-17-2022 03:27-0500 SaO2% (BldA) [Mass fraction] 96 % CREDIT COLLECTIONS CLERK-C Lorie Woodruff CREDIT COLLECTIONS CLERK Work Phone: [facility] 08-17-2022 03:27-0500 Systolic blood pressure 130 mm[Hg] CREDIT COLLECTIONS CLERK-C Lorie Woodruff CREDIT COLLECTIONS CLERK Work Phone: [facility] 08-16-2022 23:26-0500 Body height 180.34 cm CREDIT COLLECTIONS CLERK-C Lorie Woodruff CREDIT COLLECTIONS CLERK Work Phone: [facility] 08-16-2022 23:26-0500 Body mass index (BMI) [Ratio] 27.1 kg/m2 CREDIT COLLECTIONS CLERK-C Lorie Woodruff CREDIT COLLECTIONS CLERK Work Phone: [phone] [place] [address] 08-16-2022 23:26-0500 Body temperature 97.2 [degF] CREDIT COLLECTIONS CLERK-C Lorie Woodruff CREDIT COLLECTIONS CLERK Work Phone: [facility] 08-16-2022 23:26-0500 Body weight 88.45 kg CREDIT COLLECTIONS CLERK-C Lorie Woodruff CREDIT COLLECTIONS CLERK Work Phone: [facility] 05-09-2022 10:09-0500 Body height 180.34 cm CREDIT COLLECTIONS CLERK-C Lorie Woodruff CREDIT COLLECTIONS CLERK Work Phone: [facility] Work Phone: 05-09-2022 10:09-0500 Body mass index (BMI) [Ratio] 27.1 kg/m2 CREDIT COLLECTIONS CLERK-C Lorie Woodruff CREDIT COLLECTIONS CLERK Work Phone: [facility] 05-09-2022 10:09-0500 Body temperature 97.6 [degF] CREDIT COLLECTIONS CLERK-C Lorie Woodruff CREDIT COLLECTIONS CLERK Work Phone: [facility] 05-09-2022 10:09-0500 Body weight 88.08 kg CREDIT COLLECTIONS CLERK-Misty Woodruff CREDIT COLLECTIONS CLERK Work Phone: [facility] 05-09-2022 10:09-0500 Diastolic blood pressure 91 mm[Hg] CREDIT COLLECTIONS CLERK-Misty Woodruff CREDIT COLLECTIONS CLERK Work Phone: [facility] 05-09-2022 10:09-0500 Heart rate 70 /min CREDIT COLLECTIONS CLERK-Misty Woodruff CREDIT COLLECTIONS CLERK Work Phone: [facility] 05-09-2022 10:09-0500 Respiratory rate 16 /min CREDIT COLLECTIONS CLERK-Misty Woodruff CREDIT COLLECTIONS CLERK Work Phone: [facility] 05-09-2022 10:09-0500 SaO2% (BldA) [Mass fraction] 97 % CREDIT COLLECTIONS CLERK-Misty Woodruff CREDIT COLLECTIONS CLERK Work Phone: [facility] 05-09-2022 10:09-0500 Systolic blood pressure 127 mm[Hg] CREDIT COLLECTIONS CLERK-Misty Woodruff CREDIT COLLECTIONS CLERK Work Phone: [facility] 04-22-2022 17:17-0400 Body height 180.34 cm [facility] Work Phone: 04-22-2022 17:17-0400 Body mass index (BMI) [Ratio] 27.1 kg/m2 [facility] 04-22-2022 17:17-0400 Body temperature 97.9 [degF] [facility] 04-22-2022 17:17-0400 Body weight 88.45 kg [facility] 04-22-2022 17:17-0400 Diastolic blood pressure 80 mm[Hg] [facility] 04-22-2022 17:17-0400 Heart rate 101 /min [facility] 04-22-2022 17:17-0400 Respiratory rate 20 /min [facility] 04-22-2022 17:17-0400 SaO2% (BldA) [Mass fraction] 95 % [facility] 04-22-2022 17:17-0400 Systolic blood pressure 120 mm[Hg] [facility] 12-19-2021 17:16-0400 Body height 180.34 cm [facility] Work Phone: 12-19-2021 17:16-0400 Body mass index (BMI) [Ratio] 25.7 kg/m2 [facility] Work Phone: 12-19-2021 17:16-0400 Body weight 83.46 kg [facility] Work Phone: 10-22-2021 20:16-0400 Body height 180.34 cm [facility] Work Phone: 10-22-2021 20:16-0400 Body mass index (BMI) [Ratio] 27 kg/m2 [facility] Work Phone: 10-22-2021 20:16-0400 Body temperature 98.1 [degF] [facility] Work Phone: 10-22-2021 20:16-0400 Body weight 87.99 kg [facility] Work Phone: 10-22-2021 20:16-0400 Diastolic blood pressure 80 mm[Hg] [facility] Work Phone: 10-22-2021 20:16-0400 Heart rate 75 /min [facility] Work Phone: 10-22-2021 20:16-0400 Respiratory rate 18 /min [facility] Work Phone: 10-22-2021 20:16-0400 SaO2% (BldA) [Mass fraction] 96 % [facility] Work Phone: 10-22-2021 20:16-0400 Systolic blood pressure 132 mm[Hg] [facility] Work Phone: NEGATED: Highlighted [id number] 13:09-0500 Body height 175.26 cm Cindy Salguero CHERELLE [facility] Work Phone: NEGATED: Highlighted [id number] 13:050 Body height 175 cm Cindy Salguero LPN [facility] Work Phone: NEGATED: Highlighted [id number] 13:050 Body mass index (BMI) [Ratio] 28.46 kg/m2 Cindy Salguero LPN [facility] Work Phone: NEGATED: Highlighted [id number]:09050 Body weight 87.09 kg Cindy Salguero LPN [facility] Work Phone: NEGATED: Highlighted [id number] 13:050 Body weight 87 kg Cindy Salguero LPN [facility] Work Phone: Encounters Encounter Date Encounter Type Care Provider Facility Start: 12-30-2024 End: 12-30-2024 ambulatory Lorie Woodruff CREDIT COLLECTIONS CLERK-C Work Phone: -Laboratory Specimen Start: 12-30-2024 End: 12-30-2024 Patient encounter procedure Lorie Woodruff CREDIT COLLECTIONS CLERK-C -Laboratory Specimen Work Phone: Start: 12-30-2024 End: 12-30-2024 ambulatory Lorie Woodruff CREDIT COLLECTIONS CLERK Facility:[facility] Start: 10-12-2024 End: 10-12-2024 ambulatory Lorie Woodruff CREDIT COLLECTIONS CLERK-C Work Phone: [facility] Work Phone: Start: 10-12-2024 End: 10-12-2024 Patient encounter procedure Lorie Woodruff CREDIT COLLECTIONS CLERK-C -Laboratory, Specimen Work Phone: Start: 10-12-2024 End: 10-12-2024 ambulatory Lorie Woodruff CREDIT COLLECTIONS CLERK Facility:[facility] Start: 06-18-2024 End: 06-18-2024 Patient encounter procedure Lorie Woodruff CREDIT COLLECTIONS CLERK-C -Laboratory, Specimen Work Phone: Start: 06-18-2024 End: 06-18-2024 ambulatory Lorie Woodruff CREDIT COLLECTIONS CLERK Facility:[facility] Start: 04-05-2024 End: 04-05-2024 ambulatory Lorie Woodruff CREDIT COLLECTIONS CLERK Facility:[facility] Start: 09-18-2023 End: 09-18-2023 ambulatory [facility] Work Phone: Start: 09-18-2023 End: 09-18-2023 Patient encounter procedure [facility]-Laboratory, Specimen Work Phone: Start: 06-17-2023 End: 06-17-2023 ambulatory [facility] Work Phone: Start: 06-17-2023 End: 06-17-2023 Patient encounter procedure [facility]-Laboratory, Specimen Work Phone: Start: 12-16-2022 End: 12-16-2022 ambulatory [facility] Work Phone: Start: 12-16-2022 End: 12-16-2022 Patient encounter procedure [facility]-Radiology, [facility] Start: 12-10-2022 End: 12-10-2022 ambulatory [facility] Work Phone: Start: 12-10-2022 End: 12-10-2022 Patient encounter procedure [facility]-Laboratory, Specimen Start: 09-18-2022 End: 09-18-2022 ambulatory [facility] Work Phone: Start: 09-18-2022 End: 09-18-2022 Patient encounter procedure [facility]-Laboratory, Specimen Start: 08-16-2022 End: 08-17-2022 Emergency department patient visit CREDIT COLLECTIONS CLERK-C Lorie Woodruff CREDIT COLLECTIONS CLERK Work Phone: [facility]-Emergency Department Start: 05-27-2022 End: 05-27-2022 ambulatory CREDIT COLLECTIONS CLERK-C Lorie Woodruff CREDIT COLLECTIONS CLERK Work Phone: [facility] Work Phone: Start: 05-27-2022 End: 05-27-2022 Patient encounter procedure CREDIT COLLECTIONS CLERK-Misty Woodruff CREDIT COLLECTIONS CLERK Work Phone: [facility]-Laboratory, Specimen Start: 05-09-2022 End: 05-09-2022 Patient encounter procedure CREDIT COLLECTIONS CLERK-C Lorieteresa GauthierWoodruff CREDIT COLLECTIONS CLERK Work Phone: [facility] Start: 04-25-2022 End: 04-25-2022 ambulatory [facility] Work Phone: Start: 04-25-2022 End: 04-25-2022 Patient encounter [facility] Start: 04-22-2022 End: 04-22-2022 ambulatory [facility] Work Phone: Start: 04-22-2022 End: 04-22-2022 Patient encounter procedure [facility]-Laboratory, Specimen Start: 03-05-2022 End: 03-05-2022 ambulatory [facility] Work Phone: Start: 03-05-2022 End: 03-05-2022 Patient encounter procedure [facility]-Laboratory, Specimen Start: 12-19-2021 End: 12-19-2021 Patient encounter procedure [facility]-Laboratory, Specimen Start: 10-24-2021 End: 10-24-2021 Patient encounter procedure [facility]-Laboratory, Specimen Start: 08-01-2020 Patient encounter status [facility] Start: 05-10-2019 Patient encounter status [facility] Procedures Date Procedure Procedure Detail Performing Clinician Start: 12-30-2024 Free prostate specif ic antigen level Lorie Woodruff CREDIT COLLECTIONS CLERK-C Work Phone: Comment on above: [facility]. Start: 12-30-2024 Prostate specific an tigen measurement Lorie Woodruff CREDIT COLLECTIONS CLERK-C Work Phone: Comment on above: [employer].According to the [place] [employer], Serum PSAshould decrease and remain [...] prostate specif ic antigen level Lorie Woodruff CREDIT COLLECTIONS CLERK-C Work Phone: Comment on above: [facility]. Start: 10-12-2024 Prostate specific an tigen measurement Lorie Woodruff CREDIT COLLECTIONS CLERK-C Work Phone: Comment on above: [facility].According to the [place] [employer], Serum PSAshould decrease and remain [...] CT angiography of ch est with contrast CREDIT COLLECTIONS CLERK-C Lorie Woodruff CREDIT COLLECTIONS CLERK Work Phone: Start: 08-16-2022 Plain chest X-ray CREDIT COLLECTIONS CLERK-C Lorie Woodruff CREDIT COLLECTIONS CLERK Work Phone: Start: 04-25-2022 MRI of pelvis [...] Date Care Activity Detail Author Start: 08-16-2022 [facility] Start: 08-16-2021 End: 08-16-2021 Patient encounter procedure Appointment [facility] Work Phone: Patient Education CAD ED Bronchi tis, No Antibiotic (Adult) [facility] Work Phone: Patient referral [facility] Work Phone: XR Foot GE 3 Views [facility] Payers Date Payer Category Payer Medicare [id number] 2024 Self-pay [id number] 2024 Unknown [id number] 2013 Unknown [id number] ff [id number] Unknown [id number] Unknown [id number] Unknown [id number] Unknown [id number] Social History Date Type Detail Facility Start: 08-01-2020 End: 01-21-2023 Assertion Unknown if ever smoked [facility] Work Phone: Start: 1955 Sex Assigned At Male [facility] Start: 01-21-2023 [facility] Start: 10-15-2024 Sex Male (finding) [facility] Mental Status Date Assessment Result Facility 08-16-2022 Cognitive function Voice/Name [facility] Work Phone: Clinical Notes 06-04-2022 to 10-12-2024 Note Date & Type Note Facility 10-12-2024 Evaluation note Diagnosis Onset Date Resolution Bilateral acute otitis media acute October 12, 2024 3:03pm Cancer of prostate w/low recurrence risk (T1-2a, Jesse<7 & PSA<10) acute October 12, 2024 3:03pm [facility] Work Phone: 1(473) 286-608004-15-2025 Evaluation note* Diagnosis Onset Date Resolution Status Admit Date Bilateral acute otitis media acute October 12, 2024 3:03pm Cancer of prostate w/low recurrence risk (T1-2a, [place]<7 & PSA<10) acute October 12, 2024 3:03pm Elevated PSA acute December 30 3:05pm Prostate cancer acute December 30, 2024 3:05pm [facility] Work Phone: 1(340) 767-920806-22-2023 Evaluation note* Diagnosis Onset Date Resolution Status Cancer of prostate w/low rec urrence risk (T1-2a, Jesse<7 & PSA<10) acute Foot pain acute [facility] Work Phone: 1(136) 660-773206-16-2023 Evaluation note* Diagnosis Onset Date Resolution Status Cancer of prostate w/low rec urrence risk (T1-2a, Jesse<7 & PSA<10) acute Foot pain acute [facility] Work Phone: 1(428) 286-366203-29-2023 Evaluation note* Diagnosis Onset Date Resolution Status Cancer of prostate w/low rec urrence risk (T1-2a, Jesse<7 & PSA<10) [facility] Work Phone: 1(683) 359-857402-18-2023 Evaluation note* Diagnosis Onset Date Resolution Status Acute bacterial bronchitis a cute Bilateral acute otitis media acute Prostate cancer acute Cancer of prostate w/low rec urrence risk (T1-2a, [place]<7 & PSA<10) [facility] Work Phone: 1(129) 552-662312-06-2022 Evaluation note* Diagnosis Onset Date Resolution Status Acute bacterial bronchitis a cute Bilateral acute otitis media acute Prostate cancer acute Cancer of prostate w/low rec urrence risk (T1-2a, Jesse<7 & PSA<10) [facility] Work Phone: Evaluation noteThere may be information available, but it has not been provided by the sender.[facility] Work Phone: Evaluation note* Diagnosis Onset Date Resolution Status Wellness examination acute [facility] Work Phone: Evaluation note* Diagnosis Onset Date Resolution Status Elevated PSA [facility] Work Phone: Evaluation note* Diagnosis Onset Date Resolution Status Acute bacterial bronchitis a cute Bilateral acute otitis media acute Prostate cancer [facility] Work Phone: Evaluation note* Diagnosis Onset Date Resolution Status Abnormal PSA acute Prostate cancer [facility] Work Phone: Hospital Discharge instructions Additional [...] [facility] Inst[facility]* Instruction Description Start Date CompletedPatient advised to follow-up with Primary Care Physician for BMI management. [facility] Work Phone: Reason for referral (narrative)No reason for referral information availableWKn[facility] Work Phone: Chief Complaint Chief Complaint Description [...] November 24, 2015 1 :03pm Power of Employee Relations Administrator Yes November 24, 2015 1:03pm Advance Directive Response Recorded Date/ Time Advance Directives Yes April 22, 2022 3:02pm Living Will Yes April 22 3:02pm Power of Employee Relations Administrator Yes April 22, 2022 3:02pm Advance Directive Response Recorded Date/ Time Advance Directives Yes April 22, 2022 2:02pm Living Will Yes April 22 2:02pm Power of Employee Relations Administrator Yes April 22, 2022 2:02pm Advance Directive Response Recorded Date/ Time Advance Directives Yes April 22, 2022 2:02pm Living Will No August 16, 2 023 11:26pm Power of Employee Relations Administrator No August 16, 2022 11:26pm Advance Directive Response Recorded Date/ Time Advance Directives Yes April 22, 2022 3:02pm Living Will No August 17, 2 023 12:26am Power of Employee Relations Administrator No August 17, 2022 12:26am Advance Directive Response Recorded Date/ Time Advance Directives Yes January 21 1:38pm Living Will No January 21, 2023 1:38pm Power of Employee Relations Administrator No January 21 1:38pm Advance Directive Response Recorded Date/ Time Advance Directives Yes January 21 2:38pm Living Will No January 21, 2023 2:38pm Power of Employee Relations Administrator No January 21 2:38pm Advance Directive Response [...] Cancer of prostate w/low recurrence risk (T1-2a, [place]<7 & PSA<10) Chief Complaint Cough X3 weeks MALIGNANT NEOPLASM OF PROSTATE consult - prostate chest pain Reason for Visit Acute bacterial bron chitis Bilateral acute otitis media Prostate cancer Cancer of prostate w/low recurrence risk (T1-2a, [place]<7 & PSA<10) Chief Complaint chest pain Lab [...] Active Member Role Status Dates Lorie Woodruff CREDIT COLLECTIONS CLERK, CREDIT COLLECTIONS CLERK-C Family Provider Active Lorie Woodruff CREDIT COLLECTIONS CLERK, CREDIT COLLECTIONS CLERK-C Primary Care Provider Active Team Status: Inactive Member Role Status Dates Lorie Woodruff CREDIT COLLECTIONS CLERK, CREDIT COLLECTIONS CLERK-C Primary Care Provider Active Dr. Augusto Mcnamara DO Attending Provider Active Dr. Brandyn Schroeder MD Referring Provider Active Team Status: Inactive Member Role Status Dates Lorie Woodruff CREDIT COLLECTIONS CLERK, CREDIT COLLECTIONS CLERK-C Primary Care Pr ovider, Attending Provider, Referring Provider Active Team Status: Inactive Member Role Status Dates Lorie Woodruff NP, CREDIT COLLECTIONS CLERK-C Primary Care Provider Active Dr. Brandyn Schroeder MD Attending Provider Active Team Status: Inactive Member Role Status Dates Lorie Woodruff NP, CREDIT COLLECTIONS CLERK-C Primary Care Provider, Attend ing Provider Active Team Status: Inactive Member Role Status Dates Lorie Woodruff NP, CREDIT COLLECTIONS CLERK-C Primary Care Provider Active Dr. Brandyn Schroeder MD Attending Provider, Referr ing Provider Active Team Status: Inactive Member Role Status Dates Lorie Woodruff NP, CREDIT COLLECTIONS CLERK-C Primary Care Provider Active Dr. Tonny Mohan DO Emergency Provider Active Team Status: Inactive Member Role Status Dates Lorie Woodruff NP, CREDIT COLLECTIONS CLERK-C Primary Care Provider Active Dr. Tonny Mohan DO Attending Provider, Emergency Pr ovider Active Team Status: Inactive Member Role Status Dates Lorie Woodruff CREDIT COLLECTIONS CLERK, CREDIT COLLECTIONS CLERK-C Primary Care Provider Active Start: June 18, 2024 End: June 18, 2024 Lorie Woodruff NP, CREDIT COLLECTIONS CLERK-C Attending Provider Active Start: June 18, 2024 End: June 18, 2024 Lorie Woodruff CREDIT COLLECTIONS CLERK, CREDIT COLLECTIONS CLERK-C Referring Provider Active Start: June 18, 2024 End: June 18, 2024 Team Status: Inactive Member Role Status Dates Lorie Woodruff CREDIT COLLECTIONS CLERK, CREDIT COLLECTIONS CLERK-C Primary Care Provider Active Start: October 12, 2024 End: October 12, 2024 Lorie Woodruff CREDIT COLLECTIONS CLERK, CREDIT COLLECTIONS CLERK-C Attending Provider Active Start: October 12, 2024 End: October 12, 2024 Lorie Woodruff CREDIT COLLECTIONS CLERK, CREDIT COLLECTIONS CLERK-C Referring Provider Active Start: October 12, 2024 End: October 12, 2024 Team Status: Inactive Member Role Status Dates Lorie Woodruff CREDIT COLLECTIONS CLERK, CREDIT COLLECTIONS CLERK-C Primary Care Provider Active Start: October 12, 2024 End: October 12, 2024 Lorie Woodruff CREDIT COLLECTIONS CLERK, CREDIT COLLECTIONS CLERK-C Attending Provider Active Start: October 12, 2024 End: October 12, 2024 Team Status: Active Member Role/Relationship Status Dates Lorie Woodruff CREDIT COLLECTIONS CLERK, CREDIT COLLECTIONS CLERK-C Family Provider Active Lorie Woodruff CREDIT COLLECTIONS CLERK, CREDIT COLLECTIONS CLERK-C Primary Care Provider Active Team Status: Inactive Member Role/Relationship Status Dates Lorie Woodruff CREDIT COLLECTIONS CLERK, CREDIT COLLECTIONS CLERK-C Primary Care Provider Active Start: October 12, 2024 End: October 12, 2024 Lorie Woodruff CREDIT COLLECTIONS CLERK, CREDIT COLLECTIONS CLERK-C Attending Provider Active Start: October 12, 2024 End: October 12, 2024 Lorie Woodruff CREDIT COLLECTIONS CLERK, CREDIT COLLECTIONS CLERK-C Referring Provider Active Start: October 12, 2024 End: October 12, 2024 Team Status: Inactive Member Role/Relationship Status Dates Lorie Woodruff CREDIT COLLECTIONS CLERK, CREDIT COLLECTIONS CLERK-C Primary Care Provider Active Start: October 12, 2024 End: October 12, 2024 Lorie Woodruff CREDIT COLLECTIONS CLERK, CREDIT COLLECTIONS CLERK-C Attending Provider Active Start: October 12, 2024 End: October 12, 2024 Team Status: Inactive Member Role/Relationship Status Dates Lorie Woodruff CREDIT COLLECTIONS CLERK, CREDIT COLLECTIONS CLERK-C Primary Care Provider Active Start: December 30, 2024 End: December 30, 2024 Lorie Woodruff CREDIT COLLECTIONS CLERK, CREDIT COLLECTIONS CLERK-C Attending Provider Active Start: December 30, 2024 End: December 30, 2024 Lorie Woodruff CREDIT COLLECTIONS CLERK, CREDIT COLLECTIONS CLERK-C Referring Provider Active Start: December 30, 2024 End: December 30, 2024 Team Status: Inactive Member Role/Relationship Status Dates Lorie Woodruff CREDIT COLLECTIONS CLERK, CREDIT COLLECTIONS CLERK-C Primary Care Provider Active Start: December 30, 2024 End: December 30, 2024 Lorie Woodruff CREDIT COLLECTIONS CLERK, CREDIT COLLECTIONS CLERK-C Attending Provider Active Start: December 30, 2024 End: December 30, 2024 (unrecognized sect ion and content) No Status Records Found INFORMATION SOURCE (unrecogn ized section and content) DATE CREATED AUTHOR 01/12/2025 [facility] FOR RECORDS PERTAINING TO PATIENTS WHO [...] BE BASED ON THE PRIMARY CLINICAL RECORDS. [facility]. provides no warranty or guarantee of the accuracy or completeness of information in this document.
[2025-04-18 21:48] LABS: Hematocrit 42.2 % (40-54); Hemoglobin 14.6 g/dL (13.0-16.5); Immature Granulocytes Count 0.010 X10^3/uL (0.0-0.0); Mean Corp Hgb Conc 34.6 g/dL (32-36); Mean Corpuscular Volume 96.3 fL (80-94); Mean Platelet Vol. 11.5 fl (6.2-12.0); NRBC Flagged by Analyzer 0 % (0-5); Platelet Count 293 K/mm3 (150-450); RBC Distribution Width CV 12.9 % (11.6-14.6); RBC Distribution Width SD 45.6 fl (35.1-43.9); Red Blood Count 4.38 M/mm3 (4.6-6.2); White Blood Count 7.0 K/mm3 (4.4-11.0)
[2025-04-18 21:51] LABS: AST(SGOT) 34 U/L (<=37); Alanine Aminotransfer ALT/SGPT 36 U/L (<=46); Albumin, Serum 4.1 g/dL (3.4-4.8); Alkaline Phosphatase 76 U/L (40-129); Anion Gap 10 (5-15); BUN 19 mg/dL (4-19); BUN/Creat Ratio 20.3 RATIO (10-20); Calcium,Total 9.3 mg/dL (7.6-11.0); Carbon Dioxide 25.8 mmol/L (21.0-32.0); Chloride 100 mmol/L (98-108); Cholesterol 187 mg/dL (<=200); Globulin 2.8 g/dL (2.2-4.2); Glucose 114 mg/dL (70-99); Low Density Lipoprotein Calc. 92 mg/dL; Potassium 4.2 mmol/L (3.3-5.1); Triglycerides 222 mg/dL; Very Low Density Lipoprotein 44 mg/dL (5-40); cholesterol:hdl ratio screen 3.26
[2025-04-20 14:09] LABS: PSA, Free 0.60 ng/mL; PSA, Free % 13.2 % (.); PSA, Total Ultrasensitive 4.550 ng/mL (0.000-4.000)
== END | disposition home or self-care (01) ==
PROVIDERS: PCP Nurse Practitioner; Referring Provider Nurse Practitioner; Visit Provider Nurse Practitioner
DX: C61 Malignant neoplasm of prostate (principal); K57.92 Diverticulitis of intestine, part unspecified, without perforation or abscess without bleeding; E78.5 Hyperlipidemia, unspecified
CPT/HCPCS: 80053; 80061; 84153; 84154; 85025